=== PATIENT | female | born 1955 | race Caucasian/White ===

== ENCOUNTER 2018-12-17 14:22 | Inpatient (IN) ==
[2018-12-17] MEDS ORDERED: 0.9 % SODIUM CHLORIDE 1,000 ML IV ONE ×3 (14:30→18:21)
[2018-12-17 15:30] LABS: Hematocrit 46.4 % (36.0-48.0); Hemoglobin 15.3 g/dL (12.0-15.0); Mean Cell Volume 88.7 fL (80.0-100.0); Mean Corpuscular HGB Conc 32.9 g/dL (31.0-36.0); Mean Platelet Volume 10.1 fL (7.4-10.4); Platelet Count 309 K/mcL (140-440); RBC 5.23 M/mcL (4.00-5.20); Red Cell Distribution Width 12.1 % (11.5-14.5); WBC 14.5 K/mcL (4.5-11.0)
[2018-12-17 15:59] LABS: ALT/SGPT 10 U/l (0-40); AST/SGOT 10 U/l (0-37); Albumin 4.4 gm/dL (3.2-5.2); Alkaline Phosphatase 131 U/L (39-117); Bilirubin,Total 0.4 mg/dL (0.0-1.0); Blood Urea Nitrogen 25 mg/dl (8-23); Calcium 10.8 mg/dl (8.6-10.4); Carbon Dioxide < 5 mmol/L (22-30); Chloride 89 mmol/L (96-108); Globulin 4.4 gm/dL (2.2-3.7); Glomerular Filtration Rate 48; Glucose 540 mg/dL (70-105)
[2018-12-17] MEDS ORDERED: INSULIN REGULAR, HUMAN 1 UNIT/0.01 ML UNIT IV ONE (16:00)
[2018-12-17 16:09] LABS: Lymphocytes % 6 % (15-49); Monocytes % (Manual) 1 % (1-12); Platelet Estimate NORMAL (NORMAL); RBC Morphology NORMAL (NORMAL); Segmented Neutrophils % 93 % (38-78)
--- NOTE | 2018-12-17 16:13 | Emergency Department Note ---
Weakness HPI - General Chief complaint: Weakness Stated complaint: weakness, nausea vomiting Time Seen by Provider: 12/17/18 14:37 Source: patient, family Mode of arrival: wheelchair Limitations: no limitations - History of Present Illness HPI Narrative: This pleasant 63-year-old female reports vomiting, weakness and fatigue. Not really nauseated. She had 5 episodes of emesis and/or liquids that she was trying to keep down today. No diarrhea. She has been trying to drink bone broth, electrolyte replacement, and lots of water. She is also been sleeping a lot the last several days. No exposure to others with gastroenteritis symptoms. No recent antibiotics. She feels a tiny bit short of breath. She denies dizziness or lightheadedness except feels a little bit imbalanced or woozy when she gets up to move around. REVIEW OF SYSTEMS: Denies fever, chills, sweats, chest pain. Has occasional palpitations p articularly after eating that may make her take some deeper breaths. Denies cough, shortness of breath, abdominal pain, dysuria, back pain, headache, anxiety, depression. - Related Data Allergies Allergy/AdvReac Type Severity Reaction Status Date / Time Amoxicillin [From Augmentin] AdvReac Nausea Verified 12/17/18 14:27 clavulanic acid AdvReac Nausea Verified 12/17/18 14:27 [From Augmentin] Past Medical History - Past Medical History Medical history: Reports: other (PREDIABETES (2016-andrew).). Denies: cancer, CVA, DVT, hypertension, hypothyroidism, myocardial infarction, pulmonary embolus, renal disease Psychiatric history: Denies: anxiety, depression Surgical history ED: Reports: dilation and curettage - Social History smoking status: Never smoker Physical Exam Limitations: no limitations General appearance: alert, consternation, in no apparent distress, malaise Head: atraumatic, normocephalic Eye: Present: normal appearance, PERRL, EOMI. Absent: scleral icterus, conjunctival injection ENT: Present: mucous membranes dry Neck: Present: trachea midline. Absent: lymphadenopathy, thyromegaly Chest: Present: symmetric chest wall rise Respiratory: Present: normal lung sounds bilaterally. Absent: respiratory distress, wheezes, stridor, accessory muscle use, prolonged expiratory phase Cardiovascular: Present: regular rate, tachycardia. Absent: systolic murmur, diastolic murmur Abdominal: Present: soft. Absent: distention, tenderness, guarding, rebound, rigidity, organomegaly, mass Extremities: Absent: pedal edema, pretibial edema, calf tenderness Back: Absent: CVA tenderness (R), CVA tenderness (L) Neurological: Present: alert, oriented X3 Psychiatric: Present: flat affect, serious. Absent: depressed, agitated, anxious, poor eye contact Skin: Present: warm, dry Course Vital Signs Temperature 98.2 F 12/17/18 14:23 Pulse Rate 122 H 12/17/18 14:23 Respiratory Rate 20 12/17/18 14:23 Blood Pressure 185/87 12/17/18 14:23 Pulse Oximetry (%) 98 12/17/18 14:23 Temperature 98.2 F 12/17/18 14:23 Pulse Rate 98 H 12/17/18 17:31 Respiratory Rate 20 12/17/18 17:31 Blood Pressure 153/76 12/17/18 17:31 Pulse Oximetry (%) 100 12/17/18 17:31 Weakness - MDM Narrative Medical decision making narrative: 4:07 PM -- patient's labs come back with a markedly suppressed bicarb and blood sugar of over 500. Will add beta hydroxybutyrate, ABG, 5 units of regular insulin IV, moved to cardiac monitored bed. 4:20 PM -- she reports that approximately 3 years ago was when she had a diagnosis of prediabetes. She has lost about 60 pounds of weight since that period of time. She was unaware of any elevated blood sugar chronic or severe problem. 4:36 PM -- ABG comes back with a pH of 6.99, PCO2 of 11, base excess -26.9. With the severe acidotic measures patient is in rather severe DKA and will start DKA protocol. - Lab Data Lab results reviewed: Yes I reviewed the patient's lab results. Result diagrams: 12/17/18 14:52 12/17/18 14:52 Lab Results 12/17/18 12/17/18 12/17/18 Range/Units 14:52 14:52 14:52 WBC 14.5 H (4.5-11.0) K/mcL RBC 5.23 H (4.00-5.20) M/mcL Hgb 15.3 H (12.0-15.0) g/dL Hct 46.4 (36.0-48.0) % MCV 88.7 (80.0-100.0) fL MCH 29.2 (26.0-34.0) pg MCHC 32.9 (31.0-36.0) g/dL RDW 12.1 (11.5-14.5) % Plt Count 309 (140-440) K/mcL MPV 10.1 (7.4-10.4) fL Total Counted 100 Seg Neutrophils % 93 H (38-78) % Band Neutrophils % Not Reportable Lymphocytes % 6 L (15-49) % Monocytes % (Manual) 1 (1-12) % Platelet Estimate Normal (NORMAL) RBC Morphology Normal (NORMAL) VBG Lactic Acid (0.5-2.0) mmol/L Sodium 132 L (133-145) mmol/L Potassium 5.0 (3.3-5.1) mmol/L Chloride 89 L (96-108) mmol/L Carbon Dioxide < 5 L* (22-30) mmol/L Anion Gap 38.0 H (8-16) BUN 25 H (8-23) mg/dl Creatinine 1.2 H (0.6-1.1) mg/dl GFR Calculation 48 Glucose 540 H* (70-105) mg/dL Calcium 10.8 H (8.6-10.4) mg/dl Total Bilirubin 0.4 (0.0-1.0) mg/dL AST 10 (0-37) U/l ALT 10 (0-40) U/l Alkaline Phosphatase 131 H (39-117) U/L Total Protein 8.8 H (5.9-8.4) gm/dL Albumin 4.4 (3.2-5.2) gm/dL Globulin 4.4 H (2.2-3.7) gm/dL Albumin/Globulin Ratio 1.0 (1.0-2.3) Beta-Hydroxybutyrate 14.50 H (< 0.27) mmol/L 12/17/18 Range/Units 14:54 WBC (4.5-11.0) K/mcL RBC (4.00-5.20) M/mcL Hgb (12.0-15.0) g/dL Hct (36.0-48.0) % MCV (80.0-100.0) fL MCH (26.0-34.0) pg MCHC (31.0-36.0) g/dL RDW (11.5-14.5) % Plt Count (140-440) K/mcL MPV (7.4-10.4) fL Total Counted Seg Neutrophils % (38-78) % Band Neutrophils % Lymphocytes % (15-49) % Monocytes % (Manual) (1-12) % Platelet Estimate (NORMAL) RBC Morphology (NORMAL) VBG Lactic Acid 3.4 H (0.5-2.0) mmol/L Sodium (133-145) mmol/L Potassium (3.3-5.1) mmol/L Chloride (96-108) mmol/L Carbon Dioxide (22-30) mmol/L Anion Gap (8-16) BUN (8-23) mg/dl Creatinine (0.6-1.1) mg/dl GFR Calculation Glucose (70-105) mg/dL Calcium (8.6-10.4) mg/dl Total Bilirubin (0.0-1.0) mg/dL AST (0-37) U/l ALT (0-40) U/l Alkaline Phosphatase (39-117) U/L Total Protein (5.9-8.4) gm/dL Albumin (3.2-5.2) gm/dL Globulin (2.2-3.7) gm/dL Albumin/Globulin Ratio (1.0-2.3) Beta-Hydroxybutyrate (< 0.27) mmol/L - EKG Data EKG attestation: Yes There are no EKG findings of acute coronary syndrome, Yes This EKG will be read by waste machine tender EKG results narrative: Sinus tachycardia with possible biatrial enlargement. Disposition Pt seen by TECHNICAL REP/PA only: No Clinical Impression: DKA (diabetic ketoacidoses) Qualifiers: Diabetes mellitus type: type 2 Diabetes mellitus complication detail: without coma Qualified Code(s): E11.10 - Type 2 diabetes mellitus with ketoacidosis without coma Summary: See "MEDICAL DECISION MAKING" above. 5:40 PM -- discussed with Dr. Caldwell, hospitalist, who is willing to accept this patient's care for inpatient. She will be admitted to the ICU. Potassium drip to be started and procalcitonin added per his request. Disposition: Xfer As Inpt ([facility]) Condition: Fair Referrals: Boston Almanza DO [Primary Care Provider] -
[2018-12-17] MEDS ORDERED: INSULIN REGULAR, HUMAN 50 UNIT in 0.9 % SODIUM CHLORIDE 99.5 ML IV ONE (16:39)
[2018-12-17] MEDS ORDERED: POTASSIUM CHLORIDE 20 MEQ in DEXTROSE 5% IN WATER 250 ML IV ONE ×2 (17:43→19:57)
[2018-12-17] MEDS ORDERED: ONDANSETRON 4 MG/2 ML VIAL IV PRN (19:57)
[2018-12-17] MEDS ORDERED: MAGNESIUM SULFATE 2 GM/50 ML BAG IV PRN (19:57)
[2018-12-17] MEDS ORDERED: ACETAMINOPHEN 325 MG TABLET PO PRN (19:57)
[2018-12-17] MEDS ORDERED: POTASSIUM CHLORIDE 40 MEQ in DEXTROSE 5% IN WATER 500 ML IV SCH (19:57)
[2018-12-17] MEDS ORDERED: MELATONIN 3 MG TABLET PO PRN (19:57)
[2018-12-17] MEDS ORDERED: POTASSIUM CHLORIDE 20 MEQ/10 ML VIAL IV ONE (20:41)
[2018-12-17 20:47] LABS: ABG Methemoglobin 0.1 % (0.4-1.5); Total Hemoglobin 13.7 gm/dL (12.0-15.0); VBG HCO3 7.5 mmol/L (24.0-28.0); VBG Oxygen Saturation 87.7 % (40.0-70.0); VBG PCO2 23.2 mmHg (41.0-51.0); VBG PH 7.13 U (7.32-7.42); VBG PO2 65 mmHg (25-40); VBG Total CO2 8.2 mmol/L (25.0-29.0)
[2018-12-17] MEDS: 0.45 % SODIUM CHLORIDE 1,000 ML IV SCH (20:56)
[2018-12-17] MEDS: DEXTROSE 5%-1/2NS 1,000 ML IV SCH (20:56)
[2018-12-17] MEDS: HEPARIN 5,000 UNIT/ML VIAL SQ SCH (21:05)
[2018-12-17] MEDS: DOCUSATE SODIUM 100 MG CAPSULE PO SCH (21:05)
[2018-12-17] MEDS: SENNOSIDES/DOCUSATE SODIUM 1 TAB TABLET PO SCH (21:05)
[2018-12-17] MEDS: CYANOCOBALAMIN (VITAMIN B-12) 500 MCG TABLET PO SCH (21:06)
[2018-12-17 22:03] LABS: ALT/SGPT 8 U/l (0-40); AST/SGOT 12 U/l (0-37); Albumin 3.8 gm/dL (3.2-5.2); Alkaline Phosphatase 110 U/L (39-117); Bilirubin,Direct < 0.2 mg/dL (0.0-0.3); Bilirubin,Total 0.2 mg/dL (0.0-1.0); Blood Urea Nitrogen 22 mg/dl (8-23); Calcium 9.7 mg/dl (8.6-10.4); Carbon Dioxide 7 mmol/L (22-30); Chloride 102 mmol/L (96-108); Globulin 3.9 gm/dL (2.2-3.7); Glomerular Filtration Rate 60; Glucose 331 mg/dL (70-105); Lactate Dehydrogenase 198 U/L (94-250); Phosphorous 1.5 mg/dL (2.7-4.5); Triglycerides 94 mg/dl (<150); Uric Acid 10.2 mg/dL (2.5-8.0)
--- NOTE | 2018-12-17 22:14 | Internal Med History&Physical ---
Medical - H&P: [facility] Patient information: Note initiated : 12/17/18 at 10:11 pm Service Date, if different from initiated Date: [] Patient: Iris Dey a 63 y/o F admitted on 12/17/18 for Weakness, Nausea, Vomiting. Chief Complaint: [] Chief complaint: Nausea, weakness History of present illness: Ms. Dey is a 63 year old F with no significant prior medical history who presents to the ER with symptoms of increasing nausea weakness dehydration and loss of appetite over the last 48 hours. She has had multiple episodes of emesis however denies any sick contact, uncooked meat intake or changes in medication. She denies that diarrhea, bloody stool, dysuria, cough fever, joint pain or rash. She feels extremely dehydrated and dizzy and has not been able to function over the last few hours. She was brought into the ER accompanied by multiple family members. Initial work-up was consistent with severe DKA with a pH less than 7, undetectable bicarb and blood sugar over 550. Elevated ketones. Patient was started on DKA protocol with aggressive crystalloids and insulin bolus. She does not carry history of prior diabetes. She last saw her primary care physician [address] Walton and has yet to be established with a new primary care physician. Her last health screen was approximately 2 years ago. She endorses 2 symptoms of polyphagia, polydipsia and polyuria. Review of systems A 10 point review of system was performed and is negative except as discussed above Medical - H&P: PMH Medical history: Nonsignificant Pertinent family history: No immediate family members history of diabetes Social history: No smoking or alcoholism Retired and lives with in [place] [facility] - H&P: Meds Home Medications Medication Instructions Recorded Confirmed Type No Known Home Meds 12/17/18 12/17/18 History Allergies Allergy/AdvReac Type Severity Reaction Status Date / Time Amoxicillin [From Augmentin] AdvReac Nausea Verified 12/17/18 14:27 clavulanic acid AdvReac Nausea Verified 12/17/18 14:27 [From Augmentin] Medical - H&P: Exam - Constitutional Vitals: Temp Pulse Resp BP Pulse Ox 98.8 F 98 H 22 141/65 100 12/17/18 20:24 12/17/18 20:24 12/17/18 20:24 12/17/18 20:24 12/17/18 20:24 General appearance: no acute distress Exam: Alert oriented Oral cavity dry No ear nose discharge Head normocephalic eye movement symmetrical S1-S2 regular rhythm tachycardia Diminished breath sounds bases Abdomen soft nontender Lower extremity no cyanosis clubbing no joint swelling Skin no pallor, cyanosis Psych alert cooperative mild anxiety Neuro nonfocal Medical - H&P: Reslt - Labs CBC & Chem 7: 12/18/18 03:45 12/18/18 03:45 Labs: Short CBC 12/17/18 Range/Units 14:52 WBC 14.5 H (4.5-11.0) K/mcL Hgb 15.3 H (12.0-15.0) g/dL Hct 46.4 (36.0-48.0) % Plt Count 309 (140-440) K/mcL BMP 12/17/18 12/17/18 14:52 20:17 Sodium 132 L 134 Potassium 5.0 4.3 Chloride 89 L 102 Carbon Dioxide < 5 L* 7 L* BUN 25 H 22 Creatinine 1.2 H 1.0 Glucose 540 H* 331 H Calcium 10.8 H 9.7 Liver Function 12/17/18 12/17/18 Range/Units 14:52 20:17 Total Bilirubin 0.4 0.2 (0.0-1.0) mg/dL Direct Bilirubin < 0.2 (0.0-0.3) mg/dL GGT 11 (5-36) U/L AST 10 12 (0-37) U/l ALT 10 8 (0-40) U/l Alkaline Phosphatase 131 H 110 (39-117) U/L Albumin 4.4 3.8 (3.2-5.2) gm/dL - ABG Interpretation ABG results: 12/17/18 20:17 ABG Methemoglobin 0.1 L VBG pH 7.13 L* VBG pCO2 23.2 L VBG pO2 65 H VBG HCO3 7.5 L* VBG Total CO2 8.2 L* VBG O2 Saturation 87.7 H VBG Base Excess -20.0 L Medical - H&P: A/P (1) DKA (diabetic ketoacidoses) Current visit: Yes Status: Acute * Diabetic ketoacidosis-new onset. Continue management per protocol with aggressive crystalloid/insulin drip/electrolyte replacement. Start diabetic education. Admit to ICU. Check A1c * Hypokalemia continue electrolyte replacement * Leukocytosis likely stress response. Continue monitoring. No indication for antibiotics at this time Plan * DKA management protocol * Crystalloids/Electrolytes replacement * Diabetes education * ICU admit
[2018-12-17] MEDS: 0.9 % SODIUM CHLORIDE 10 ML SYRINGE IV SCH (22:20)
[2018-12-18] MEDS ORDERED: INSULIN REGULAR, HUMAN 1 UNIT/0.01 ML UNIT ONE (00:26)
[2018-12-18 00:40] LABS: ABG Methemoglobin 0.3 % (0.4-1.5); Total Hemoglobin 11.9 gm/dL (12.0-15.0); VBG Base Excess -12.1 (-2.0-2.0); VBG HCO3 13.2 mmol/L (24.0-28.0); VBG PCO2 28.8 mmHg (41.0-51.0); VBG PH 7.28 U (7.32-7.42); VBG PO2 70 mmHg (25-40); VBG Total CO2 14.1 mmol/L (25.0-29.0)
[2018-12-18] MEDS: INSULIN REGULAR, HUMAN 50 UNIT in 0.9 % SODIUM CHLORIDE 99.5 ML IV SCH (01:34)
[2018-12-18 04:16] LABS: ABG Methemoglobin 0.3 % (0.4-1.5); Total Hemoglobin 11.8 gm/dL (12.0-15.0); VBG Base Excess -10.6 (-2.0-2.0); VBG HCO3 14.3 mmol/L (24.0-28.0); VBG Oxygen Saturation 93.5 % (40.0-70.0); VBG PCO2 29.1 mmHg (41.0-51.0); VBG PH 7.31 U (7.32-7.42); VBG PO2 79 mmHg (25-40); VBG Total CO2 15.2 mmol/L (25.0-29.0)
[2018-12-18 04:55] LABS: Mean Cell Volume 87.3 fL (80.0-100.0); Mean Corpuscular HGB Conc 34.2 g/dL (31.0-36.0); Mean Platelet Volume 8.9 fL (7.4-10.4); Platelet Count 226 K/mcL (140-440); RBC 4.01 M/mcL (4.00-5.20); WBC 8.9 K/mcL (4.5-11.0)
[2018-12-18 05:24] LABS: ALT/SGPT 6 U/l (0-40); AST/SGOT 10 U/l (0-37); Alkaline Phosphatase 82 U/L (39-117); Bilirubin,Direct < 0.2 mg/dL (0.0-0.3); Bilirubin,Total 0.2 mg/dL (0.0-1.0); Blood Urea Nitrogen 15 mg/dl (8-23); Calcium 9.4 mg/dl (8.6-10.4); Carbon Dioxide 14 mmol/L (22-30); Chloride 109 mmol/L (96-108); Globulin 2.9 gm/dL (2.2-3.7); Glomerular Filtration Rate 97; Glucose 113 mg/dL (70-105); Lactate Dehydrogenase 131 U/L (94-250); Triglycerides 64 mg/dl (<150); Uric Acid 8.2 mg/dL (2.5-8.0)
[2018-12-18] MEDS: 0.9 % SODIUM CHLORIDE 10 ML SYRINGE IV SCH ×4 (05:55→22:03)
[2018-12-18 06:50] LABS: Hemoglobin A1C 12.8 % HGB (4.0-6.0)
[2018-12-18 08:34] LABS: Band Neutrophils % 3 % (0-10); Lymphocytes % 16 % (15-49); Monocytes % (Manual) 10 % (1-12); Platelet Estimate NORMAL (NORMAL); RBC Morphology NORMAL (NORMAL); Segmented Neutrophils % 71 % (38-78)
[2018-12-18] MEDS: 0.45 % SODIUM CHLORIDE 1,000 ML IV SCH (09:21)
[2018-12-18] MEDS: FOLIC ACID 1 MG TABLET PO SCH (09:54)
[2018-12-18] MEDS: NEUTRA PHOS 1 PACKET PO SCH ×3 (09:54→21:30)
[2018-12-18] MEDS: CYANOCOBALAMIN (VITAMIN B-12) 500 MCG TABLET PO SCH ×2 (09:54→21:31)
[2018-12-18] MEDS: MULTIVIT,THER IRON,CA,FA & MIN 1 TABLET PO SCH (09:54)
[2018-12-18] MEDS: THIAMINE 100 MG TABLET PO SCH (09:54)
[2018-12-18] MEDS: DOCUSATE SODIUM 100 MG CAPSULE PO SCH ×3 (09:54→21:56)
[2018-12-18] MEDS: HEPARIN 5,000 UNIT/ML VIAL SQ SCH ×2 (09:54→21:30)
[2018-12-18] MEDS: POTASSIUM CHLORIDE 20 MEQ PACKET PO PRN ×2 (09:55→22:39)
--- NOTE | 2018-12-18 10:14 | Internal Med Progress Note ---
Medical - PN: Subj Patient information: Note initiated : 12/18/18 at 10:11 am Service Date, if different from initiated Date: [] Patient: Iris Dey a 63 y/o F admitted on 12/17/18 for Weakness, Nausea, Vomiting. Chief Complaint: [] Interval history: Ms. Dey is a 63 year old F with no significant prior medical history who presents to the ER with symptoms of increasing nausea weakness dehydration and loss of appetite over the last 48 hours. She has had multiple episodes of emesis however denies any sick contact, uncooked meat intake or changes in medication. She denies that diarrhea, bloody stool, dysuria, cough fever, joint pain or rash. She feels extremely dehydrated and dizzy and has not been able to function over the last few hours. She was brought into the ER accompanied by multiple family members. Initial work-up was consistent with severe DKA with a pH less than 7, undetecta ble bicarb and blood sugar over 550. Elevated ketones. Patient was started on DKA protocol with aggressive crystalloids and insulin bolus. She does not carry history of prior diabetes. She last saw her primary care physician [address] Walton and has yet to be established with a new primary care physician. Her last health screen was approximately 2 years ago. She endorses 2 symptoms of polyphagia, polydipsia and polyuria. 12/18-patient doing well. Improving DKA with management on protocol. Continue electrolyte Replacement. Magnesium 1, potassium 3.6. White count downtrending from 40.6-9. Bicarb improving to 14. Continue insulin drip. Start oral diet once anion gap normalizes and ketones resolved. Start diabetic education 24 hours. Patient basal prandial insulin. Family members at bedside. Discussed treatment plan with patient and family - Constitutional Vitals: Vital Signs Temp Pulse Resp BP Pulse Ox 98.7 F 82 16 131/67 100 12/18/18 08:21 12/18/18 08:21 12/18/18 08:21 12/18/18 08:21 12/18/18 08:21 Period Temp Pulse Resp BP Sys/[place] Pulse Ox Last 24 Hr 98.2 F-99.9 F 82-122 16-26 113-185/59-98 98-100 Intake and Output 12/17/18 12/18/1812/18/19 21:59 05:59 13:59 Intake Total 2686 952 1300 Output Total 600 300 470 Balance 2086 652 830 Weight 122 lb 9.6 oz Intake & Output: Intake & Output 12/17/18 12/18/18 12/18/18 21:59 05:59 13:59 Intake Total 2686 952 1300 Output Total 600 300 470 Balance 2086 652 830 Weight 122 lb 9.6 oz Intake: IV 2686 952 940 Sodium Chloride 0.45% 1,000 ml 931 @ 75 mls/hr IV .[id number] [facility] Rx# :[id number] Sodium Chloride 0.9% 1,000 ml @ 2421 579 250 mls/hr IV .Q4H ONE Rx#: [id number] HumuLIN R 50 UNIT In Sodium 29 18 9 Chloride 0.9% 99.5 ml @ Per Protocol IV DUR [facility] Rx#: [id number] Potassium Chloride 20 Meq In 228 260 Dextrose 5% in Water 250 ml @ 130 mls/hr IV ONCE ONE Rx#: [id number] Oral 360 Output: Void Amount 600 300 450 Stool 20 Other: Urine Appearance Clear Clear Urine Color Straw Straw Pale Urine Odor Normal General appearance: no acute distress Exam: Alert oriented Significant weight loss with significant muscle wasting Soft nontender Lower extremity no cyanosis, pallor or clubbing Medical - PN: Obj Da - Labs CBC & Chem 7: 12/18/18 03:45 12/18/18 03:45 Labs: Abnormal Lab Results 12/18/18 12/18/18 12/18/18 03:45 03:45 03:45 WBC RBC Hgb Hct 35.0 L Seg Neutrophils % Lymphocytes % ABG Methemoglobin VBG pH VBG pCO2 VBG pO2 VBG HCO3 VBG Total CO2 VBG O2 Saturation VBG Base Excess VBG Lactic Acid Carboxyhemoglobin Total Hemoglobin Sodium Chloride 109 H Carbon Dioxide 14 L Anion Gap BUN Creatinine Glucose 113 H Hemoglobin A1c 12.8 H Uric Acid 8.2 H Calcium Phosphorus 1.0 L Alkaline Phosphatase Total Protein Albumin 3.0 L Globulin Beta-Hydroxybutyrate 12/18/18 12/17/18 12/17/18 03:45 23:57 20:17 WBC RBC Hgb Hct Seg Neutrophils % Lymphocytes % ABG Methemoglobin 0.3 L 0.3 L VBG pH 7.31 L 7.28 L VBG pCO2 29.1 L 28.8 L VBG pO2 79 H 70 H VBG HCO3 14.3 L 13.2 L VBG Total CO2 15.2 L 14.1 L VBG O2 Saturation 93.5 H 92.0 H VBG Base Excess -10.6 L -12.1 L VBG Lactic Acid Carboxyhemoglobin 2.8 H 2.6 H Total Hemoglobin 11.8 L 11.9 L Sodium Chloride Carbon Dioxide 7 L* Anion Gap 25.0 H BUN Creatinine Glucose 331 H Hemoglobin A1c Uric Acid 10.2 H Calcium Phosphorus 1.5 L Alkaline Phosphatase Total Protein Albumin Globulin 3.9 H Beta-Hydroxybutyrate 12/17/18 12/17/18 12/17/18 20:17 14:54 14:52 WBC RBC Hgb Hct Seg Neutrophils % Lymphocytes % ABG Methemoglobin 0.1 L VBG pH 7.13 L* VBG pCO2 23.2 L VBG pO2 65 H VBG HCO3 7.5 L* VBG Total CO2 8.2 L* VBG O2 Saturation 87.7 H VBG Base Excess -20.0 L VBG Lactic Acid 3.4 H Carboxyhemoglobin 4.3 H Total Hemoglobin Sodium Chloride Carbon Dioxide Anion Gap BUN Creatinine Glucose Hemoglobin A1c Uric Acid Calcium Phosphorus Alkaline Phosphatase Total Protein Albumin Globulin Beta-Hydroxybutyrate 14.50 H 12/17/18 12/17/18 14:52 14:52 WBC 14.5 H RBC 5.23 H Hgb 15.3 H Hct Seg Neutrophils % 93 H Lymphocytes % 6 L ABG Methemoglobin VBG pH VBG pCO2 VBG pO2 VBG HCO3 VBG Total CO2 VBG O2 Saturation VBG Base Excess VBG Lactic Acid Carboxyhemoglobin Total Hemoglobin Sodium 132 L Chloride 89 L Carbon Dioxide < 5 L* Anion Gap 38.0 H BUN 25 H Creatinine 1.2 H Glucose 540 H* Hemoglobin A1c Uric Acid Calcium 10.8 H Phosphorus Alkaline Phosphatase 131 H Total Protein 8.8 H Albumin Globulin 4.4 H Beta-Hydroxybutyrate Meds: Medications Acetaminophen (Tylenol) 650 mg PO Q4-6HP PRN PRN Reason: PAIN/FEVER > 101 Last Admin: 12/17/18 23:59 Dose: 650 mg Documented by: Cyanocobalamin (Vitamin B-12) 1,000 mcg PO BID TANNA Stop: 12/22/18 09:01 Last Admin: 12/18/18 09:54 Dose: 1,000 mcg Documented by: Diagnostic Test (Pha) (Accu-Chek) 1 each FS Q1 [facility] Last Admin: 12/18/18 09:05 Dose: 1 each Documented by: Docusate Sodium (Colace) 100 mg PO BID [facility] Last Admin: 12/18/18 09:54 Dose: 100 mg Documented by: Folic Acid (Folic Acid) 1 mg PO DAILY [facility] Last Admin: 12/18/18 09:54 Dose: 1 mg Documented by: Heparin Sodium (Porcine) (Heparin) 5,000 unit SQ Q12 [facility] Last Admin: 12/18/18 09:54 Dose: 5,000 unit Documented by: Dextrose/Sodium Chloride (Dextrose 5%-1/2ns Iv Solution) 1,000 mls @ 75 mls/hr IV .[id number] [facility] Last Admin: 12/17/18 20:56 Dose: 75 mls/hr Documented by: Potassium Chloride 40 meq/ (Dextrose) 520 mls @ 130 mls/hr IV UD TANNA Magnesium Sulfate (Magnesium Sulfate) 2 gm in 50 mls @ 50 mls/hr IV UD PRN PRN Reason: MG = or < 1.7 Last Admin: 12/18/18 09:57 Dose: 50 mls/hr Documented by: Insulin Human Regular 50 unit/ (Sodium Chloride) 100 mls @ 0 mls/hr IV DUR [facility]; Protocol Last Titration: 12/18/18 07:13 Dose: 1.5 unit/hr, 3 mls/hr Documented by: Iron Carb/Multivit/Giles/Folic Acid (Multivitamin W/Minerals) 1 tab PO DAILY [facility] Last Admin: 12/18/18 09:54 Dose: 1 tab Documented by: Melatonin (Melatonin 3mg Tablet) 3 mg PO HSP PRN PRN Reason: Insomnia Ondansetron HCl (Zofran) 4 mg IV Q4-6HP PRN PRN Reason: Nausea And Vomiting Potassium Chloride (Klor-Con) 40 meq PO DAILYP PRN PRN Reason: K+ < 3.5 Last Admin: 12/18/18 09:55 Dose: 40 meq Documented by: Potassium/Phosphorus/Sodium (Neutra Phos) 2 packet PO TID [facility] Stop: 12/19/18 21:01 Last Admin: 12/18/18 09:54 Dose: 2 packet Documented by: Senna/Docusate Sodium (Senna Plus Tablet) 1 tab PO HS [facility] Last Admin: 12/17/18 21:05 Dose: Not Given Documented by: Sodium Chloride (Saline Flush) 10 ml IV Q8 [facility] Last Admin: 12/18/18 09:57 Dose: 10 ml Documented by: Thiamine HCl (Vitamin B1) 100 mg PO DAILY [facility] Last Admin: 12/18/18 09:54 Dose: 100 mg Documented by: - ABG Interpretation ABG results: 12/17/18 12/17/18 12/18/18 20:17 23:57 03:45 ABG Methemoglobin 0.1 L 0.3 L 0.3 L VBG pH 7.13 L* 7.28 L 7.31 L VBG pCO2 23.2 L 28.8 L 29.1 L VBG pO2 65 H 70 H 79 H VBG HCO3 7.5 L* 13.2 L 14.3 L VBG Total CO2 8.2 L* 14.1 L 15.2 L VBG O2 Saturation 87.7 H 92.0 H 93.5 H VBG Base Excess -20.0 L -12.1 L -10.6 L Medical - PN: A/P - Time Spent With Patient Total time spent is greater than 50% in coordination of care (as documented) at patient's floor/unit and/or counseling patient: 25 - 35 minutes (1) DKA (diabetic ketoacidoses) Status: Acute Assessment and plan: * Diabetic ketoacidosis-new onset. Continue management per protocol with aggressive crystalloid/insulin drip/electrolyte replacement. Bicarb gap 38- 14. Start diabetic education. Admit to ICU. A1c 12.4 * Hypokalemia-continue aggressive IV and oral replacement. * Leukocytosis likely stress response. Normalized. * Hyponatremia improved * Low magnesium 1 currently on replacement * Full code * Reflux heparin Plan * Continue DKA management protocol * Wean insulin drip as tolerated * Crystalloids/Electrolytes replacement * May start oral clears in 6 hours * Diabetes education Current Visit: Yes
[2018-12-18] MEDS: DEXTROSE 5%-1/2NS 1,000 ML IV SCH ×2 (11:03→22:39)
[2018-12-18 17:40] LABS: Blood Urea Nitrogen 10 mg/dl (8-23); Calcium 9.4 mg/dl (8.6-10.4); Carbon Dioxide 17 mmol/L (22-30); Chloride 104 mmol/L (96-108); Glomerular Filtration Rate 103; Glucose 160 mg/dL (70-105)
[2018-12-18 20:39] LABS: Blood Urea Nitrogen 7 mg/dl (8-23); Calcium 8.9 mg/dl (8.6-10.4); Carbon Dioxide 19 mmol/L (22-30); Chloride 106 mmol/L (96-108); Glomerular Filtration Rate 103; Glucose 175 mg/dL (70-105)
[2018-12-18] MEDS: SENNOSIDES/DOCUSATE SODIUM 1 TAB TABLET PO SCH (21:56)
[2018-12-19] MEDS ORDERED: INSULIN REGULAR, HUMAN 1 UNIT/0.01 ML UNIT ONE (01:59)
[2018-12-19] MEDS: INSULIN REGULAR, HUMAN 50 UNIT in 0.9 % SODIUM CHLORIDE 99.5 ML IV SCH (02:02)
[2018-12-19 05:26] LABS: Hematocrit 33.5 % (36.0-48.0); Hemoglobin 11.5 g/dL (12.0-15.0); Mean Cell Volume 86.7 fL (80.0-100.0); Mean Corpuscular HGB Conc 34.3 g/dL (31.0-36.0); Mean Platelet Volume 9.4 fL (7.4-10.4); Platelet Count 213 K/mcL (140-440); RBC 3.87 M/mcL (4.00-5.20); Red Cell Distribution Width 12.1 % (11.5-14.5); WBC 5.2 K/mcL (4.5-11.0)
[2018-12-19 05:52] LABS: ALT/SGPT 7 U/l (0-40); AST/SGOT 11 U/l (0-37); Albumin 2.8 gm/dL (3.2-5.2); Alkaline Phosphatase 84 U/L (39-117); Bilirubin,Direct < 0.2 mg/dL (0.0-0.3); Bilirubin,Total 0.4 mg/dL (0.0-1.0); Blood Urea Nitrogen 5 mg/dl (8-23); Calcium 8.7 mg/dl (8.6-10.4); Carbon Dioxide 20 mmol/L (22-30); Chloride 108 mmol/L (96-108); Globulin 2.7 gm/dL (2.2-3.7); Glomerular Filtration Rate 111; Glucose 144 mg/dL (70-105); Lactate Dehydrogenase 125 U/L (94-250); Phosphorous 1.7 mg/dL (2.7-4.5); Triglycerides 119 mg/dl (<150); Uric Acid 4.5 mg/dL (2.5-8.0)
[2018-12-19] MEDS: 0.9 % SODIUM CHLORIDE 10 ML SYRINGE IV SCH ×3 (06:05→21:23)
[2018-12-19 06:35] LABS: Basophils % (Manual) 1 % (0-2); Lymphocytes % 21 % (15-49); Monocytes % (Manual) 4 % (1-12); Platelet Estimate NORMAL (NORMAL); RBC Morphology NORMAL (NORMAL); Segmented Neutrophils % 74 % (38-78)
[2018-12-19] MEDS: DOCUSATE SODIUM 100 MG CAPSULE PO SCH ×2 (08:03→21:05)
[2018-12-19] MEDS ORDERED: DEXTROSE 50% 50 ML VIAL IV PRN ×2 (08:24→12:44)
[2018-12-19] MEDS ORDERED: DEXTROSE 31 GM ORAL.SUSP PO PRN ×2 (08:24→12:44)
[2018-12-19] MEDS ORDERED: INSULIN GLARGINE, HUMAN 1 UNIT/0.01 ML SQ SCH (09:00)
[2018-12-19] MEDS: FOLIC ACID 1 MG TABLET PO SCH (09:34)
[2018-12-19] MEDS: HEPARIN 5,000 UNIT/ML VIAL SQ SCH ×2 (09:35→21:18)
[2018-12-19] MEDS: THIAMINE 100 MG TABLET PO SCH (10:33)
[2018-12-19] MEDS: NEUTRA PHOS 1 PACKET PO SCH ×3 (10:33→21:22)
[2018-12-19] MEDS: CYANOCOBALAMIN (VITAMIN B-12) 500 MCG TABLET PO SCH ×2 (10:33→21:21)
[2018-12-19] MEDS: MULTIVIT,THER IRON,CA,FA & MIN 1 TABLET PO SCH (10:33)
--- NOTE | 2018-12-19 11:21 | Internal Med Progress Note ---
Medical - PN: Subj Patient information: Note initiated : 12/19/18 at 11:19 am Service Date, if different from initiated Date: [] Patient: Iris Dey a 63 y/o F admitted on 12/17/18 for Weakness, Nausea, Vomiting. Chief Complaint: [] Interval history: Ms. Dey is a 63 year old F with no significant prior medical history who presents to the ER with symptoms of increasing nausea weakness dehydration and loss of appetite over the last 48 hours. She has had multiple episodes of emesis however denies any sick contact, uncooked meat intake or changes in medication. She denies that diarrhea, bloody stool, dysuria, cough fever, joint pain or rash. She feels extremely dehydrated and dizzy and has not been able to function over the last few hours. She was brought into the ER accompanied by multiple family members. Initial work-up was consistent with severe DKA with a pH less than 7, undetecta ble bicarb and blood sugar over 550. Elevated ketones. Patient was started on DKA protocol with aggressive crystalloids and insulin bolus. She does not carry history of prior diabetes. She last saw her primary care physician [address] Walton and has yet to be established with a new primary care physician. Her last health screen was approximately 2 years ago. She endorses 2 symptoms of polyphagia, polydipsia and polyuria. 12/18-patient doing well. Improving DKA with management on protocol. Continue electrolyte Replacement. Magnesium 1, potassium 3.6. White count downtrending from 40.6-9. Bicarb improving to 14. Continue insulin drip. Start oral diet once anion gap normalizes and ketones resolved. Start diabetic education 24 hours. Patient basal prandial insulin. Family members at bedside. Discussed treatment plan with patient and family 12/19-patient doing remarkably better. Transition to subcutaneous insulin. Diabetes education ongoing. Aggressively replacing potassium, magnesium and phosphorus. White count normalized from 14.5-5.2. Anion gap bridged, bicarb up to 20. Started on CC diet. Downgrade to telemetry. Anticipate discharge in 24 hours once patient is able to self administer insulin. Ideally would require carb counting/basal insulin - Constitutional Vitals: Vital Signs Temp Pulse Resp BP Pulse Ox 99.8 F H 94 H 14 121/77 99 12/19/18 08:11 12/18/18 23:33 12/19/18 08:31 12/19/18 08:11 12/19/18 08:11 Period Temp Pulse Resp BP Sys/[place] Pulse Ox Last 24 Hr 98.6 F-100.7 F 87-94 12-24 118-137/63-77 98-100 Intake and Output 12/18/18 12/19/18 12/19/18 21:59 05:59 13:59 Intake Total 2019 1293 240 Output Total 1700 500 Balance 320 1293 -260 Weight 129 lb 129 lb Patient Weight 12/20/18 05:59 Weight 129 lb Intake & Output: Intake & Output 12/18/18 12/19/18 12/19/18 21:59 05:59 13:59 Intake Total 2019 1293 240 Output Total 1700 500 Balance 320 1293 -260 Weight 129 lb 129 lb Intake: IV 933 Dextrose 5%-1/2Ns IV Solution 1 870 ,000 ml @ 75 mls/hr IV .[id number] TANNA Rx#:[id number] HumuLIN R 50 UNIT In Sodium 63 Chloride 0.9% 99.5 ml @ Per Protocol IV DUR TANNA Rx#: [id number] Oral 2020 360 240 Output: Void Amount 1700 Urine/Stool Mix 500 Other: Urine Appearance Clear Clear Urine Color Straw Straw Urine Odor Normal Normal Stool Color Brown General appearance: no acute distress Exam: Cachectic Alert and oriented Nonlabored breathing No telemetry events No anxiety Medical - PN: Obj Da - Labs CBC & Chem 7: 12/19/18 03:35 12/19/18 03:35 Labs: Abnormal Lab Results 12/19/18 12/19/18 12/18/18 03:35 03:35 19:50 WBC RBC 3.87 L Hgb 11.5 L Hct 33.5 L Seg Neutrophils % Lymphocytes % ABG Methemoglobin VBG pH VBG pCO2 VBG pO2 VBG HCO3 VBG Total CO2 VBG O2 Saturation VBG Base Excess VBG Lactic Acid Carboxyhemoglobin Total Hemoglobin Sodium Potassium 3.2 L Chloride Carbon Dioxide 20 L 19 L Anion Gap BUN 5 L 7 L Creatinine 0.4 L 0.5 L Glucose 144 H 175 H Hemoglobin A1c Uric Acid Calcium Phosphorus 1.7 L Alkaline Phosphatase Total Protein 5.5 L Albumin 2.8 L Globulin Beta-Hydroxybutyrate 12/18/18 12/18/18 12/18/18 13:00 03:45 03:45 WBC RBC Hgb Hct Seg Neutrophils % Lymphocytes % ABG Methemoglobin VBG pH VBG pCO2 VBG pO2 VBG HCO3 VBG Total CO2 VBG O2 Saturation VBG Base Excess VBG Lactic Acid Carboxyhemoglobin Total Hemoglobin Sodium Potassium Chloride 109 H Carbon Dioxide 17 L 14 L Anion Gap BUN Creatinine 0.5 L Glucose 160 H 113 H Hemoglobin A1c 12.8 H Uric Acid 8.2 H Calcium Phosphorus 1.0 L Alkaline Phosphatase Total Protein Albumin 3.0 L Globulin Beta-Hydroxybutyrate 12/18/18 12/18/18 12/17/18 03:45 03:45 23:57 WBC RBC Hgb Hct 35.0 L Seg Neutrophils % Lymphocytes % ABG Methemoglobin 0.3 L 0.3 L VBG pH 7.31 L 7.28 L VBG pCO2 29.1 L 28.8 L VBG pO2 79 H 70 H VBG HCO3 14.3 L 13.2 L VBG Total CO2 15.2 L 14.1 L VBG O2 Saturation 93.5 H 92.0 H VBG Base Excess -10.6 L -12.1 L VBG Lactic Acid Carboxyhemoglobin 2.8 H 2.6 H Total Hemoglobin 11.8 L 11.9 L Sodium Potassium Chloride Carbon Dioxide Anion Gap BUN Creatinine Glucose Hemoglobin A1c Uric Acid Calcium Phosphorus Alkaline Phosphatase Total Protein Albumin Globulin Beta-Hydroxybutyrate 12/17/18 12/17/18 12/17/18 20:17 20:17 14:54 WBC RBC Hgb Hct Seg Neutrophils % Lymphocytes % ABG Methemoglobin 0.1 L VBG pH 7.13 L* VBG pCO2 23.2 L VBG pO2 65 H VBG HCO3 7.5 L* VBG Total CO2 8.2 L* VBG O2 Saturation 87.7 H VBG Base Excess -20.0 L VBG Lactic Acid 3.4 H Carboxyhemoglobin 4.3 H Total Hemoglobin Sodium Potassium Chloride Carbon Dioxide 7 L* Anion Gap 25.0 H BUN Creatinine Glucose 331 H Hemoglobin A1c Uric Acid 10.2 H Calcium Phosphorus 1.5 L Alkaline Phosphatase Total Protein Albumin Globulin 3.9 H Beta-Hydroxybutyrate 12/17/18 12/17/18 12/17/18 14:52 14:52 14:52 WBC 14.5 H RBC 5.23 H Hgb 15.3 H Hct Seg Neutrophils % 93 H Lymphocytes % 6 L ABG Methemoglobin VBG pH VBG pCO2 VBG pO2 VBG HCO3 VBG Total CO2 VBG O2 Saturation VBG Base Excess VBG Lactic Acid Carboxyhemoglobin Total Hemoglobin Sodium 132 L Potassium Chloride 89 L Carbon Dioxide < 5 L* Anion Gap 38.0 H BUN 25 H Creatinine 1.2 H Glucose 540 H* Hemoglobin A1c Uric Acid Calcium 10.8 H Phosphorus Alkaline Phosphatase 131 H Total Protein 8.8 H Albumin Globulin 4.4 H Beta-Hydroxybutyrate 14.50 H Meds: Medications Acetaminophen (Tylenol) 650 mg PO Q4-6HP PRN PRN Reason: PAIN/FEVER > 101 Last Admin: 12/17/18 23:59 Dose: 650 mg Documented by: Cyanocobalamin (Vitamin B-12) 1,000 mcg PO BID [facility] Stop: 12/22/18 09:01 Last Admin: 12/19/18 10:33 Dose: 1,000 mcg Documented by: Dextrose (Dextrose 50%) 0 ml IV UD PRN PRN Reason: Hypoglycemia Diagnostic Test (Pha) (Accu-Chek) 1 each FS Q2 [facility] Last Admin: 12/19/18 08:00 Dose: 1 each Documented by: Diagnostic Test (Pha) (Accu-Chek) 1 each FS ACHS [facility] Docusate Sodium (Colace) 100 mg PO BID [facility] Last Admin: 12/19/18 08:03 Dose: Not Given Documented by: Folic Acid (Folic Acid) 1 mg PO DAILY [facility] Last Admin: 12/19/18 09:34 Dose: 1 mg Documented by: Glucose (Insta-Glucose) 15 gm PO PRN PRN PRN Reason: Hypoglycemia Heparin Sodium (Porcine) (Heparin) 5,000 unit SQ Q12 [facility] Last Admin: 12/19/18 09:35 Dose: 5,000 unit Documented by: Dextrose/Sodium Chloride (Dextrose 5%-1/2ns Iv Solution) 1,000 mls @ 75 mls/hr IV .[id number] [facility] Last Admin: 12/18/18 22:39 Dose: 75 mls/hr Documented by: Potassium Chloride 40 meq/ (Dextrose) 520 mls @ 130 mls/hr IV UD [facility] Magnesium Sulfate (Magnesium Sulfate) 2 gm in 50 mls @ 50 mls/hr IV UD PRN PRN Reason: MG = or < 1.7 Last Infusion: 12/18/18 11:18 Dose: Infused Documented by: Insulin Glargine (Lantus) 15 unit SQ DAILY [facility] Last Admin: 12/19/18 09:33 Dose: 15 units Documented by: Insulin Human Lispro (Humalog) 5 unit SQ AC [facility] Insulin Human Lispro (Humalog) 0 unit SQ ACHS [facility]; Protocol Iron Carb/Multivit/[place]/Folic Acid (Multivitamin W/Minerals) 1 tab PO DAILY [facility] Last Admin: 12/19/18 10:33 Dose: 1 tab Documented by: Melatonin (Melatonin 3mg Tablet) 3 mg PO HSP PRN PRN Reason: Insomnia Ondansetron HCl (Zofran) 4 mg IV Q4-6HP PRN PRN Reason: Nausea And Vomiting Potassium Chloride (Klor-Con) 40 meq PO DAILYP PRN PRN Reason: K+ < 3.5 Last Admin: 12/18/18 22:39 Dose: 40 meq Documented by: Potassium/Phosphorus/Sodium (Neutra Phos) 2 packet PO TID [facility] Stop: 12/19/18 21:01 Last Admin: 12/19/18 10:33 Dose: 2 packet Documented by: Senna/Docusate Sodium (Senna Plus Tablet) 1 tab PO HS [facility] Last Admin: 12/18/18 21:56 Dose: Not Given Documented by: Sodium Chloride (Saline Flush) 10 ml IV Q8 [facility] Last Admin: 12/19/18 06:05 Dose: 10 ml Documented by: Thiamine HCl (Vitamin B1) 100 mg PO DAILY [facility] Last Admin: 12/19/18 10:33 Dose: 100 mg Documented by: - ABG Interpretation ABG results: 12/17/18 12/17/18 12/18/18 20:17 23:57 03:45 ABG Methemoglobin 0.1 L 0.3 L 0.3 L VBG pH 7.13 L* 7.28 L 7.31 L VBG pCO2 23.2 L 28.8 L 29.1 L VBG pO2 65 H 70 H 79 H VBG HCO3 7.5 L* 13.2 L 14.3 L VBG Total CO2 8.2 L* 14.1 L 15.2 L VBG O2 Saturation 87.7 H 92.0 H 93.5 H VBG Base Excess -20.0 L -12.1 L -10.6 L Medical - PN: A/P - Time Spent With Patient Total time spent is greater than 50% in coordination of care (as documented) at patient's floor/unit and/or counseling patient: 25 - 35 minutes (1) DKA (diabetic ketoacidoses) Status: Acute Assessment and plan: * Diabetic ketoacidosis-clinically resolved. Anion gap normalized. Transition to subcutaneous insulin and DC insulin drip. Start diabetic education/diabetic diet. * Hypokalemia, low phosphorus, low magnesium-continue oral replacement * Leukocytosis likely stress response. Normalized. * Hyponatremia resolved * Full code * Reflux heparin Plan * Transition to subcutaneous insulin * Diabetic diet/diabetic education * Aggressive electrolyte replacement * Anticipate discharge in 24 hours * Transfer to telemetry Current Visit: Yes
[2018-12-19] MEDS ORDERED: INSULIN LISPRO 1 UNIT/0.01 ML UNIT SQ SCH ×2 (11:30)
[2018-12-19] MEDS ORDERED: DEXTROSE 5%-1/2NS 1,000 ML IV SCH (12:44)
[2018-12-19] MEDS ORDERED: MAGNESIUM SULFATE 2 GM/50 ML BAG IV PRN (12:44)
[2018-12-19] MEDS ORDERED: ONDANSETRON 4 MG/2 ML VIAL IV PRN (12:44)
[2018-12-19] MEDS ORDERED: POTASSIUM CHLORIDE 40 MEQ in DEXTROSE 5% IN WATER 500 ML IV SCH (12:44)
[2018-12-19] MEDS ORDERED: POTASSIUM CHLORIDE 20 MEQ PACKET PO PRN (12:44)
[2018-12-19] MEDS ORDERED: ACETAMINOPHEN 325 MG TABLET PO PRN (12:44)
[2018-12-19] MEDS: INSULIN LISPRO 1 UNIT/0.01 ML UNIT SQ SCH ×3 (17:47→21:16)
[2018-12-19] MEDS: DEXTROSE 5%-1/2NS 1,000 ML IV SCH (18:33)
[2018-12-19] MEDS ORDERED: MELATONIN 3 MG TABLET PO PRN (21:00)
[2018-12-19] MEDS ORDERED: SENNOSIDES/DOCUSATE SODIUM 1 TAB TABLET PO SCH (21:00)
[2018-12-20 05:34] LABS: Hematocrit 32.5 % (36.0-48.0); Mean Cell Volume 87.2 fL (80.0-100.0); Mean Corpuscular HGB Conc 33.9 g/dL (31.0-36.0); Mean Platelet Volume 9.4 fL (7.4-10.4); Platelet Count 211 K/mcL (140-440); RBC 3.73 M/mcL (4.00-5.20); Red Cell Distribution Width 12.2 % (11.5-14.5); WBC 4.1 K/mcL (4.5-11.0)
[2018-12-20] MEDS: 0.9 % SODIUM CHLORIDE 10 ML SYRINGE IV SCH (05:34)
[2018-12-20 06:26] LABS: ALT/SGPT 7 U/l (0-40); AST/SGOT 10 U/l (0-37); Albumin 2.7 gm/dL (3.2-5.2); Alkaline Phosphatase 87 U/L (39-117); Bilirubin,Direct < 0.2 mg/dL (0.0-0.3); Bilirubin,Total 0.4 mg/dL (0.0-1.0); Blood Urea Nitrogen 7 mg/dl (8-23); Calcium 8.8 mg/dl (8.6-10.4); Carbon Dioxide 21 mmol/L (22-30); Chloride 108 mmol/L (96-108); Globulin 2.6 gm/dL (2.2-3.7); Glomerular Filtration Rate 111; Glucose 132 mg/dL (70-105); Lactate Dehydrogenase 127 U/L (94-250); Phosphorous 3.3 mg/dL (2.7-4.5); Triglycerides 94 mg/dl (<150); Uric Acid 3.5 mg/dL (2.5-8.0)
[2018-12-20] MEDS: CYANOCOBALAMIN (VITAMIN B-12) 500 MCG TABLET PO SCH (08:20)
[2018-12-20] MEDS: INSULIN LISPRO 1 UNIT/0.01 ML UNIT SQ SCH ×4 (08:25→12:28)
[2018-12-20 08:51] LABS: Band Neutrophils % 3 % (0-10); Eosinophils % (Manual) 1 % (0-7); Lymphocytes % 36 % (15-49); Monocytes % (Manual) 12 % (1-12); Platelet Estimate NORMAL (NORMAL); RBC Morphology NORMAL (NORMAL); Segmented Neutrophils % 48 % (38-78)
[2018-12-20] MEDS ORDERED: FOLIC ACID 1 MG TABLET PO SCH (09:00)
[2018-12-20] MEDS ORDERED: MULTIVIT,THER IRON,CA,FA & MIN 1 TABLET PO SCH (09:00)
[2018-12-20] MEDS ORDERED: THIAMINE 100 MG TABLET PO SCH (09:00)
[2018-12-20] MEDS ORDERED: INSULIN GLARGINE, HUMAN 1 UNIT/0.01 ML SQ SCH (09:00)
[2018-12-20] MEDS: DOCUSATE SODIUM 100 MG CAPSULE PO SCH (10:19)
[2018-12-20] MEDS: HEPARIN 5,000 UNIT/ML VIAL SQ SCH (10:19)
--- NOTE | 2018-12-20 11:29 | Discharge Summary ---
Medical - DS: Prov Patient information: Note initiated : 12/20/18 at 11:27 am Service Date, if different from initiated Date: [] Patient: Iris Dey 63 y/o F admitted on 12/17/18 for Weakness, Nausea, Vomiting. Chief Complaint: [] Date of admission: 12/17/18 19:53 Discharge date: 12/20/18 Primary care physician: Boston Almanza Consults: 12/17/18 17:42 Consult to Physician [CONS] Routine Comment: Consulting Provider: Karthik Andujar Reason For Exam: Physician to Consult Medical - DS: Meds - Discharge Medications Prescriptions: Insulin Glargine, Human [Lantus] 15 unit SQ DAILY 30 Days #30 unit Insulin Lispro [Humalog] See Protocol SQ ACHS 60 Days #30 unit Active and Home Medications: Home Medications Insulin Glargine, Human [Lantus] 15 unit SQ DAILY 30 Days #30 unit 12/20/18 [Rx Last Taken Unknown] Insulin Lispro [Humalog] See Protocol SQ ACHS 60 Days #30 unit 12/20/18 [Rx Last Taken Unknown] Medical - DS: Hosp Hospital Course: Discharge diagnosis * Diabetic ketoacidosis-clinically resolved with management per guidelines. Transition to subcutaneous insulin. New onset diabetes with aggressive diabetic education/resources provided. Continue diabetic diet. Continue basal/prandial insulin as advised * Hypokalemia, low phosphorus, low magnesium-managed with aggressive oral and IV replacement * Leukocytosis likely stress response. Normalized. * Hyponatremia resolved Brief hospital course Ms. Dey is a 63 year old F with no significant prior medical history who presents to the ER with symptoms of increasing nausea weakness dehydration and loss of appetite over the last 48 hours. She has had multiple episodes of emesis however denies any sick contact, uncooked meat intake or changes in medication. She denies that diarrhea, bloody stool, dysuria, cough fever, joint pain or rash. She feels extremely dehydrated and dizzy and has not been able to function over the last few hours. She was brought into the ER accompanied by multiple family members. Initial work-up was consistent with severe DKA with a pH less than 7, undetectable bicarb and blood sugar over 550. Elevated ketones. Patient was started on DKA protocol with aggressive crystalloids and insulin bolus. She does not carry history of prior diabetes. She last saw her primary care physician [address] Walton and has yet to be established with a new primary care physician. Her last health screen was approximately 2 years ago. She endorses 2 symptoms of polyphagia, polydipsia and polyuria. 12/18-patient doing well. Improving DKA with management on protocol. Continue electrolyte Replacement. Magnesium 1, potassium 3.6. White count downtrending from 40.6-9. Bicarb improving to 14. Continue insulin drip. Start oral diet once anion gap normalizes and ketones resolved. Start diabetic education 24 hours. Patient basal prandial insulin. Family members at bedside. Discussed treatment plan with patient and family 12/19-patient doing remarkably better. Transition to subcutaneous insulin. Diabetes education ongoing. Aggressively replacing potassium, magnesium and phosphorus. White count normalized from 14.5-5.2. Anion gap bridged, bicarb up to 20. Started on CC diet. Downgrade to telemetry. Anticipate discharge in 24 hours once patient is able to self administer insulin. Ideally would require carb counting/basal insulin 12/20-patient discharging with advised to follow-up with primary care physician and continue basal/prandial insulin as directed. Continue sliding scale insulin/outpatient diabetic education for carb counting. Detailed discharge instructions below Discharge diagnosis: . - Time Spent with Patient Total time spent providing and/or coordinating discharge services: Greater than 30 minutes Medical - DS: Exam - Constitutional Vitals: Vital Signs Temp Pulse Resp BP Pulse Ox 12/20/18 08:00 99.3 F H 16 123/67 97 12/20/18 04:00 99.5 F H 83 16 128/72 97 12/19/18 23:23 98.8 F 85 16 122/66 98 12/19/18 20:00 99.7 F H 16 133/73 98 12/19/18 18:30 100 H 98 12/19/18 16:00 97.7 F 94 H 18 134/76 100 12/19/18 13:10 99.8 F H 18 Intake and Output 12/19/18 12/20/18 12/20/18 21:59 05:59 13:59 Intake Total 850 300 240 Output Total 350 1300 Balance 500 -1000 240 Intake: Oral 850 300 240 Output: Void Amount 350 1300 Other: Meal Dinner Breakfast Percent of Meal Consumed 90 100% Feeding Ability Assist with Tray Set Up Independent Urine Appearance Clear Clear Urine Color Dark Yellow Bright Yellow Stool Consistency Loose # Bowel Movements 1 0 Weight 131 lb Medical - DS: Data Labs on day of discharge: Labs from last 24 hours 12/20/18 12/20/18 03:50 03:50 WBC 4.1 L RBC 3.73 L Hgb 11.0 L Hct 32.5 L MCV 87.2 MCH 29.5 MCHC 33.9 RDW 12.2 Plt Count 211 MPV 9.4 Total Counted 100 Seg Neutrophils % 48 Band Neutrophils % 3 Lymphocytes % 36 Monocytes % (Manual) 12 Eosinophils % (Manual) 1 Platelet Estimate Normal RBC Morphology Normal Sodium 142 Potassium 3.4 Chloride 108 Carbon Dioxide 21 L Anion Gap 13.0 BUN 7 L Creatinine 0.4 L GFR Calculation 111 Glucose 132 H Uric Acid 3.5 Calcium 8.8 Phosphorus 3.3 Magnesium 1.7 Total Bilirubin 0.4 Direct Bilirubin < 0.2 GGT 10 AST 10 ALT 7 Alkaline Phosphatase 87 Lactate Dehydrogenase 127 Total Protein 5.3 L Albumin 2.7 L Globulin 2.6 Albumin/Globulin Ratio 1.0 Triglycerides 94 Medical - DS: A/P - Patient/Caregiver Discharge Instructions Activity: increase activity as tolerated Diet: Consistent Carbohydrate Additional Instructions: Continue basal/prandial insulin as advised Follow-up outpatient diabetic education Follow-up primary care physician in 5 to 7 days Blood sugar checks as advised Prescriptions: Insulin Glargine, Human [Lantus] 15 unit SQ DAILY 30 Days #30 unit Insulin Lispro [Humalog] See Protocol SQ ACHS 60 Days #30 unit - Problem Maintenance (1) DKA (diabetic ketoacidoses) Status: Acute Qualifiers: Diabetes mellitus type: type 2 Diabetes mellitus complication detail: without coma Qualified Code(s): E11.10 - Type 2 diabetes mellitus with ketoacidosis without coma - Follow up Plan Follow up with: Boston Almanza DO [Primary Care Provider] - 12/31/18 7:15 am (If you have any problems before this appointment, please call the office and they will get you in sooner with another physician.) Disposition: Home, Self-Care Care Plan Goals: This discharge packet is provided to you to help keep you informed about your care. We want to ensure you get everything you need when you go home. You will also be receiving a call from us in a few days to follow up with you and see how you are doing since your discharge. This gives us a chance to listen to any concerns you maybe experiencing since you were discharged or any additional needs you may have, as well as providing us feedback on your care experience. We strive to always provide excellent care and thank you for your feedback and for choosing [facility]. Prognosis: Fair Rehab Potential: Fair I certify that the patient requires SNF services: No Overall status at discharge: patient is progressing back to baseline
== END 2018-12-20 13:15 | disposition home or self-care (01) | DRG 638 ==
LOC: ED 14:22 → ICU 19:50
PROVIDERS: ADMIT Internal Medicine; ATTEND Internal Medicine

== ENCOUNTER 2019-12-16 12:53 | Inpatient (IN) ==
[2019-12-16] MEDS ORDERED: ONDANSETRON 4 MG/2 ML VIAL IV ONE (13:43)
[2019-12-16] MEDS ORDERED: HYDROmorphone 0.5 MG/0.5 ML SYRINGE IV PRN ×3 (13:43→19:19)
--- NOTE | 2019-12-16 13:43 | Emergency Department Note ---
Lower Extremity Injury HPI General Chief Complaint: Extremity Injury, Lower Stated Complaint: hip pain/fall Time Seen by Provider: 12/16/19 13:04 Source: patient and EMS Mode of arrival: EMS Limitations: no limitations History of Present Illness HPI Narrative: Narrative: 64-year-old female presents with left hip pain. She was going to put stuff in the car when she kind of caught her foot on the edge of a concrete lip causing her to lose her balance and fall. Landed on the left hip. States she can move it if needed but it is painful and difficult to bear weight due to pain. Did not hit her head. No loss consciousness. No head, neck, or back pain. She last ate and drank at 930 this morning. No numbness or tingling. Denies any other injuries. No treatments prior to arrival. Arrives via EMS. Related Data Home Medications Medication Instructions Recorded Confirmed insulin glargine [Lantus U-100 19 unit SUB-Q QHS 12/16/19 12/16/19 Insulin] insulin lispro [Humalog U-100 7 - 8 unit SUB-Q TID 12/16/19 12/16/19 Insulin] Previous Rx's Medication Instructions Recorded blood sugar diagnostic #120 strip 12/20/18 blood-glucose meter #1 each 12/20/18 insulin syringe-needle U-100 0.3 #300 each 09/09/19 mL 31 gauge x 08/29" Allergies Allergy/AdvReac Type Severity Reaction Status Date / Time Amoxicillin [From Augmentin] AdvReac Mild Nausea Verified 12/16/19 13:00 clavulanic acid AdvReac Mild Nausea Verified 12/16/19 13:00 [From Augmentin] Review of Systems ROS ROS Narrative: Narrative: All systems ED: reviewed and negative except as stated. 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), managed as type 1 (Acute) Underweight (Chronic) Glucose intolerance (Chronic) Elevated BP without diagnosis of hypertension (Chronic) Diabetes mellitus, type II (Chronic) DKA (diabetic ketoacidoses) (Acute) Prediabetes (Chronic) Medical History Diabetes mellitus, type II (Chronic) Diet treated Elevated BP without diagnosis of hypertension (Chronic) Glucose intolerance (Chronic) Stabilization by aggressive diet Prediabetes (Chronic) Onset 2015- Surgical History History of colonoscopy (Chronic ~04/2008) History of dilation and curettage (Chronic) Family History Other Melanoma Social History Smoking Status: Never smoker Alcohol Intake Frequency: holiday/special occasion only Substance Use: does not use Exam Narrative Narrative: Narrative: General Limitations: no limitations General appearance: alert Head Head: atraumatic and normocephalic Eye Eye: Present normal appearance; Absent conjunctival injection ENT ENT: Present mucous membranes moist Chest Chest: Present symmetric chest wall rise Respiratory Respiratory: Present normal lung sounds bilaterally; Absent respiratory distress, rales/crackles, wheezes, stridor and accessory muscle use Cardiovascular Cardiovascular: Present regular rate, normal rhythm and normal heart sounds Extremities Extremities: Present normal inspection, tenderness (Positive diffuse left hip) and normal capillary refill; Absent full ROM (Limited active and passive range of motion to left hip related pain. Slight shortening or rotation.) and pedal edema Back Back: Present normal inspection; Absent tenderness Neurological Neurological: Present alert and oriented X3; Absent motor sensory deficit Psychiatric Psychiatric: Present normal affect and normal mood Skin Skin: Present warm, dry, intact and normal color Course Course Course Narrative: At 1520, we did speak to Dr. Skelton. He will be over to see the patient as soon as he can as he is currently in a surgery. He would like the hospitalist to admit. At 1530 I did speak with Dr. Caldwell, hospitalist here who agrees to accept the patient. Vital Signs Vital signs: Vital Signs Temperature 97.1 F 12/16/19 13:01 Pulse Rate 89 12/16/19 13:01 Respiratory Rate 16 12/16/19 13:01 Blood Pressure 166/98 12/16/19 13:01 Pulse Oximetry (%) 98 12/16/19 13:01 Temperature 97.1 F 12/16/19 13:01 Pulse Rate 67 12/16/19 15:27 Respiratory Rate 16 12/16/19 13:01 Blood Pressure 146/67 12/16/19 15:01 Pulse Oximetry (%) 96 12/16/19 15:27 MDM MDM Narrative Medical decision making narrative: Narrative: Lab Data Lab results reviewed: Yes I reviewed the patient's lab results. Result diagrams: 12/16/19 13:33 12/16/19 13:33 Labs: Lab Results 12/16/19 12/16/19 Range/Units 13:33 13:33 WBC 5.6 (4.50-11.00) K/mcL RBC 3.98 (3.59-5.38) M/mcL Hgb 12.0 (11.2-15.7) g/dL Hct 34.3 (34.1-44.9) % MCV 86.2 (80.0-100.0) fL MCH 30.2 (26.0-34.0) pg MCHC 35.0 (31.0-36.0) g/dL RDW 11.5 (11.5-14.5) % Plt Count 141 (140-440) K/mcL MPV 13.1 H (7.4-10.4) fL Gran % 57.0 (38.0-78.0) % Lymph % (Auto) 33.5 (15.5-49.0) % [place] % (Auto) 5.0 (1.0-12.0) % Eos % (Auto) 4.0 (0.0-7.0) % Baso % (Auto) 0.5 (0.0-2.0) % Gran # 3.16 (1.80-8.00) K/mcL Lymph # (Auto) 1.86 (1.50-4.80) K/mcL [place] # (Auto) 0.28 (0.10-0.90) K/mcL Eos # (Auto) 0.22 (0.00-0.70) K/mcL Baso # (Auto) 0.03 (0.00-0.30) K/mcL Sodium 135 (133-145) mmol/L Potassium 4.0 (3.3-5.1) mmol/L Chloride 101 (96-108) mmol/L Carbon Dioxide 25 (22-30) mmol/L Anion Gap 9.0 (8-16) BUN 25 H (8-23) mg/dl Creatinine 0.6 (0.6-1.1) mg/dl GFR Calculation 96 Glucose 173 H (70-105) mg/dL Calcium 9.2 (8.6-10.4) mg/dl Total Bilirubin 0.5 (0.0-1.0) mg/dL AST 17 (0-37) U/l ALT 19 (0-40) U/l Alkaline Phosphatase 86 (39-117) U/L Total Protein 6.3 (5.9-8.4) gm/dL Albumin 3.7 (3.2-5.2) gm/dL Globulin 2.6 (2.2-3.7) gm/dL Albumin/Globulin Ratio 1.4 (1.0-2.3) Radiology Data Radiology results reviewed: Yes I reviewed the patient's radiology results. Discharge Plan Patient/Caregiver Discharge Instructions Pt seen by COMPANY DOCTOR/PA only: Yes Clinical Impression: Fall, Closed fracture of left hip Patient Disposition: Xfer As Inpt ([facility]) Condition: Fair Follow up with: Cornell Skelton MD [Physician] - Boston Almanza DO [Primary Care Provider] - Prescriptions: No Action (DME) insulin syringe-needle U-100 [UltiCare] 0.3 mL 31 gauge x 5/16" syringe See Rx Instructions .ROUTE .MEDSUPPLY Qty: 300 RF: 4 (DME) blood-glucose meter 1 EACH misc 1 each MC QID Qty: 1 RF: 0 (DME) blood sugar diagnostic 1 EACH strip 1 each QID Qty: 120 RF: 0 Lantus U-100 Insulin 100 unit/mL solution 19 unit SUB-Q QHS RF: 0 insulin lispro [Humalog U-100 Insulin] 100 unit/mL solution 7 - 8 unit SUB-Q TID RF: 0
--- NOTE | 2019-12-16 13:45 | XRay Report ---
CLINICAL INFORMATION: Trauma - fall COMPARISON: None. TECHNIQUE: PA and Lateral views FINDINGS: The heart size, mediastinum and pulmonary vessels are unremarkable. The lungs are clear. There are no effusions. The bones and soft tissues are within normal limits. IMPRESSION: Normal chest. Interpreted and Authenticated by: Boston Vasquez 12/16/19
--- NOTE | 2019-12-16 13:45 | XRay Report ---
CLINICAL INFORMATION: left hip pain, fall. COMPARISON: None. FINDINGS: Nondisplaced transcervical fracture the left femoral neck appreciated. No other osseous abnormalities. Both SI and hip joints are normal in width and alignment without arthritic change. Soft tissue swelling over the fracture site appreciated IMPRESSION: Nondisplaced transcervical fracture - left femoral neck Interpreted and Authenticated by: Boston Vasquez 12/16/19
[2019-12-16 14:28] LABS: Basophils # (Auto) 0.03 K/mcL (0.00-0.30); Basophils % (Auto) 0.5 % (0.0-2.0); Eosinophils # (Auto) 0.22 K/mcL (0.00-0.70); Hematocrit 34.3 % (34.1-44.9); Lymphocytes # (Auto) 1.86 K/mcL (1.50-4.80); Lymphocytes % (Auto) 33.5 % (15.5-49.0); Mean Cell Volume 86.2 fL (80.0-100.0); Mean Platelet Volume 13.1 fL (7.4-10.4); Monocytes # (Auto) 0.28 K/mcL (0.10-0.90); Platelet Count 141 K/mcL (140-440); RBC 3.98 M/mcL (3.59-5.38); Red Cell Distribution Width 11.5 % (11.5-14.5); WBC 5.6 K/mcL (4.50-11.00)
[2019-12-16 14:41] LABS: ALT/SGPT 19 U/l (0-40); AST/SGOT 17 U/l (0-37); Albumin 3.7 gm/dL (3.2-5.2); Albumin/Globulin Ratio 1.4 (1.0-2.3); Alkaline Phosphatase 86 U/L (39-117); Bilirubin,Total 0.5 mg/dL (0.0-1.0); Blood Urea Nitrogen 25 mg/dl (8-23); Calcium 9.2 mg/dl (8.6-10.4); Carbon Dioxide 25 mmol/L (22-30); Chloride 101 mmol/L (96-108); Globulin 2.6 gm/dL (2.2-3.7); Glomerular Filtration Rate 96; Glucose 173 mg/dL (70-105)
--- NOTE | 2019-12-16 16:12 | Internal Med History&Physical ---
HPI History of Present Illness Patient information: Note initiated : 12/16/19 at 4:06 pm Service Date, if different from initiated Date: [] Patient: Iris Dey a 64 y/o F admitted on for hip pain/fall. Chief Complaint: History of present illness: Ms. Dey is a 64 year old F who presents to the ER after she fell this afternoon on an uneven curb on her left side. Isolated mechanical fall without any precipitating events. Initial work-up was consistent with left hip fracture. Orthopedic was consulted. Orthopedic requested hospital service for admission while patient will undergo operative intervention later in the evening. At the time of my evaluation patient is alert and oriented. She was able to answer most questions. She denies lightheadedness dizziness prior to fall. She denies loss of consciousness. Pain currently at 5 out of 10 but made worse with movement. Her blood sugars have been well controlled on basal prandial insulin. Last hospitalization was for DKA December 2018. 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), managed as type 1 (Acute) Underweight (Chronic) Glucose intolerance (Chronic) Elevated BP without diagnosis of hypertension (Chronic) Diabetes mellitus, type II (Chronic) DKA (diabetic ketoacidoses) (Acute) Prediabetes (Chronic) Medical History Diabetes mellitus, type II (Chronic) Diet treated Elevated BP without diagnosis of hypertension (Chronic) Glucose intolerance (Chronic) Stabilization by aggressive diet Prediabetes (Chronic) Onset 2015- Surgical History History of colonoscopy (Chronic ~04/2008) History of dilation and curettage (Chronic) Family History Other Melanoma Social History smoking status: Never smoker alcohol intake frequency: holiday/special occasion only substance use type: does not use MEDS/ALLERGIES Home Medications and Allergies Home Medications Medication Instructions Recorded Confirmed Type blood sugar diagnostic #120 strip 12/20/18 11/13/19 Rx blood-glucose meter #1 each 12/20/18 11/13/19 Rx insulin syringe-needle U-100 0.3 #300 each 09/09/19 11/13/19 Rx mL 31 gauge x 5/16" insulin glargine [Lantus U-100 19 unit SUB-Q 1645 12/16/19 12/17/19 History Insulin] insulin lispro [Humalog U-100 See Protocol SUB-Q ACHS 12/16/19 12/17/19 History Insulin] Allergies Allergy/AdvReac Type Severity Reaction Status Date / Time Amoxicillin [From Augmentin] AdvReac Mild Nausea Verified 12/16/19 13:00 clavulanic acid AdvReac Mild Nausea Verified 12/16/19 13:00 [From Augmentin] EXAM Constitutional Vitals: Temp Pulse Resp BP Pulse Ox 97.1 F 67 16 146/67 96 12/16/19 13:01 12/16/19 15:27 12/16/19 13:01 12/16/19 15:01 12/16/19 15:27 Head normocephalic Oral cavity moist No ear nose discharge Eye movement symmetrical Neck supple no lymphadenopathy S1-S2 occasionally irregular Nonlabored breathing Nondistended nontender abdomen Lower extremity no cyanosis clubbing or joint swelling, tenderness to passive hip movement left side. No shortening noted. Skin no suspicious lesion Psych anxious but alert cooperative Neuro normal higher function DATA Data Completed and Pending Labs: Labs from last 24 hours 12/16/19 12/16/19 13:33 13:33 WBC 5.6 RBC 3.98 Hgb 12.0 Hct 34.3 MCV 86.2 MCH 30.2 MCHC 35.0 RDW 11.5 Plt Count 141 MPV 13.1 H Gran % 57.0 Lymph % (Auto) 33.5 [place] % (Auto) 5.0 Eos % (Auto) 4.0 Baso % (Auto) 0.5 Gran # 3.16 Lymph # (Auto) 1.86 [place] # (Auto) 0.28 Eos # (Auto) 0.22 Baso # (Auto) 0.03 Sodium 135 Potassium 4.0 Chloride 101 Carbon Dioxide 25 Anion Gap 9.0 BUN 25 H Creatinine 0.6 GFR Calculation 96 Glucose 173 H Calcium 9.2 Total Bilirubin 0.5 AST 17 ALT 19 Alkaline Phosphatase 86 Total Protein 6.3 Albumin 3.7 Globulin 2.6 Albumin/Globulin Ratio 1.4 A/P Narrative A/P Narrative: * Left hip fracture-inpatient admission, orthopedic consult, keep n.p.o./pain management until operative intervention. * Preoperative risk evaluation based on RCRI [employer] to stratification patient has an excellent functional baseline however has no history of insulin dependent diabetes without history of CVA/CAD/CHF or renal failure. Patient would be an excellent postoperative rehab candidate. She would be intermediate risk patient overall. however surgery and anesthesia specific risks will be addressed by individual care providers. * DM type 2 insulin-dependent continue basal panel insulin/CC diet postoperatively * Full code * Prophylaxis will be as per orthopedics Plan * Inpatient admission * Orthopedic consult * Keep n.p.o./pain management * Review postop Time Spent With Patient Time: Total time spent is greater than 50% in coordination of care (as documented) at patient's floor/unit and/or counseling patient:
[2019-12-16] MEDS ORDERED: ACETAMINOPHEN 1,000 MG/100 ML BOTTLE IV ONE (16:34)
[2019-12-16] MEDS ORDERED: DEXAMETHASONE 10 MG/ML VIAL ONE (17:46)
[2019-12-16] MEDS ORDERED: fentaNYL 100 MCG/2 ML VIAL IV ONE (17:46)
[2019-12-16] MEDS ORDERED: LIDOCAINE HCL/PF 100 MG/5 ML SYRINGE IV ONE (17:46)
[2019-12-16] MEDS ORDERED: GLYCOPYRROLATE 0.2 MG/ML VIAL IV ONE (17:46)
[2019-12-16] MEDS ORDERED: ONDANSETRON 4 MG/2 ML VIAL ONE (17:46)
[2019-12-16] MEDS ORDERED: KETAMINE 100 MG/ML ML ONE (17:46)
[2019-12-16] MEDS ORDERED: MIDAZOLAM 2 MG/2 ML VIAL ONE (17:46)
[2019-12-16] MEDS ORDERED: PROPOFOL 200 MG/20 ML VIAL IV ONE (17:46)
[2019-12-16] MEDS ORDERED: BENZOCAINE/MENTHOL 1 LOZENGE PO PRN (18:16)
[2019-12-16] MEDS ORDERED: IPRATROPIUM/ALBUTEROL 3 ML AMPUL.NEB NEB PRN (18:16)
[2019-12-16] MEDS ORDERED: fentaNYL 100 MCG/2 ML VIAL IV PRN (18:16)
[2019-12-16] MEDS ORDERED: ONDANSETRON 4 MG/2 ML VIAL IV PRN ×3 (18:16→19:19)
[2019-12-16] MEDS ORDERED: MEPERIDINE 25 MG/ML SYRINGE IV PRN (18:16)
[2019-12-16] MEDS ORDERED: KETOROLAC 30 MG/ML VIAL IV PRN (18:16)
[2019-12-16] MEDS ORDERED: METHOCARBAMOL 1,000 MG/10 ML VIAL IV PRN (18:16)
[2019-12-16] MEDS ORDERED: LACTATED RINGERS 1,000 ML IV SCH (18:30)
[2019-12-16] MEDS ORDERED: oxyCODONE/APAP 5/325MG TABLET PO PRN (18:35)
--- NOTE | 2019-12-16 18:48 | XRay Report ---
CLINICAL INFORMATION: orif left hip COMPARISON: Preoperative films 12/16/2019 FINDINGS: Three digital images from the OR show insertion of three pins across the transcervical fracture of the left femoral neck. Alignment is anatomic. IMPRESSION: ORIF transcervical fracture left femoral neck. Alignment is anatomic Interpreted and Authenticated by: Boston Vasquez 12/16/19
[2019-12-16] MEDS ORDERED: traMADol 50 MG TABLET PO PRN (19:04)
[2019-12-16] MEDS ORDERED: ACETAMINOPHEN 325 MG TABLET PO PRN ×2 (19:05→19:19)
--- NOTE | 2019-12-16 19:14 | XRay Report ---
CLINICAL INFORMATION: Follow-up ORIF left hip fracture COMPARISON: None. FINDINGS: Transcervical fracture of the left hip has been reduced to anatomic alignment and now transfixed by three screws. No other changes or abnormalities IMPRESSION: ORIF left hip fracture in anatomic alignment Interpreted and Authenticated by: Boston Vasquez 12/16/19
[2019-12-16] MEDS ORDERED: ACETAMINOPHEN 650 MG/65 ML BOTTLE IV PRN (19:19)
[2019-12-16] MEDS ORDERED: DEXTROSE 50% 50 ML VIAL IV PRN (19:19)
[2019-12-16] MEDS ORDERED: ONDANSETRON 4 MG ODT TABLET SL PRN (19:19)
[2019-12-16] MEDS ORDERED: POLYETHYLENE GLYCOL 3350 17 GM PACKET PO PRN (19:19)
[2019-12-16] MEDS ORDERED: MELATONIN 3 MG TABLET PO PRN (19:19)
[2019-12-16] MEDS ORDERED: DEXTROSE 31 GM ORAL.SUSP PO PRN (19:19)
[2019-12-16] MEDS ORDERED: POTASSIUM CHLORIDE 20 MEQ PACKET PO PRN (19:19)
[2019-12-16] MEDS ORDERED: MAGNESIUM SULFATE 2 GM/50 ML BAG IV PRN (19:19)
[2019-12-16] MEDS ORDERED: BISACODYL 10 MG SUPP.RECT PR PRN (19:19)
[2019-12-16] MEDS: 0.9 % SODIUM CHLORIDE 1,000 ML IV SCH (19:40)
[2019-12-16] MEDS: INSULIN LISPRO 1 UNIT/0.01 ML UNIT SQ SCH ×2 (19:56→21:59)
[2019-12-16] MEDS ORDERED: INSULIN LISPRO 1 UNIT/0.01 ML UNIT SQ SCH (21:00)
[2019-12-16] MEDS: DOCUSATE SODIUM 100 MG CAPSULE PO SCH (21:52)
[2019-12-16] MEDS: SENNOSIDES/DOCUSATE SODIUM 1 TAB TABLET PO SCH (21:52)
[2019-12-16] MEDS: HEPARIN 5,000 UNIT/ML VIAL SQ SCH (22:00)
[2019-12-16] MEDS: 0.9 % SODIUM CHLORIDE 10 ML SYRINGE IV SCH (22:00)
[2019-12-17] MEDS: 0.9 % SODIUM CHLORIDE 10 ML SYRINGE IV SCH ×3 (05:35→21:17)
[2019-12-17 06:25] LABS: Hematocrit 34.4 % (34.1-44.9); Hemoglobin 11.8 g/dL (11.2-15.7); Mean Cell Volume 86.9 fL (80.0-100.0); Mean Corpuscular HGB Conc 34.3 g/dL (31.0-36.0); Mean Platelet Volume 12.9 fL (7.4-10.4); Platelet Count 145 K/mcL (140-440); RBC 3.96 M/mcL (3.59-5.38); Red Cell Distribution Width 11.4 % (11.5-14.5); WBC 7.6 K/mcL (4.50-11.00)
[2019-12-17 06:49] LABS: ALT/SGPT 15 U/l (0-40); AST/SGOT 14 U/l (0-37); Albumin 3.2 gm/dL (3.2-5.2); Albumin/Globulin Ratio 1.2 (1.0-2.3); Alkaline Phosphatase 82 U/L (39-117); Bilirubin,Direct < 0.2 mg/dL (0.0-0.3); Bilirubin,Total 0.7 mg/dL (0.0-1.0); Calcium 8.5 mg/dl (8.6-10.4); Carbon Dioxide 21 mmol/L (22-30); Chloride 104 mmol/L (96-108); Globulin 2.6 gm/dL (2.2-3.7); Glomerular Filtration Rate 96; Glucose 207 mg/dL (70-105); Lactate Dehydrogenase 216 U/L (94-250); Phosphorous 3.1 mg/dL (2.7-4.5); Triglycerides 44 mg/dl (<150); Uric Acid 4.3 mg/dL (2.5-8.0)
[2019-12-17 06:50] LABS: Blood Urea Nitrogen 17 mg/dl (8-23)
[2019-12-17] MEDS: INSULIN LISPRO 1 UNIT/0.01 ML UNIT SQ SCH ×4 (07:39→20:46)
--- NOTE | 2019-12-17 07:39 | Brief Operative Note ---
Brief Operative Note Date of procedure: 12/16/19 Pre-op diagnosis: Left nondisplaced femoral neck fracture Post-op diagnosis: same Procedure: Percutaneous screw fixation of left femoral neck fracture Grafts/Implants: Yes (3 6.5 canulated screws) Anesthesia: spinal and GLMA Findings: minimally displaced Complications: none Surgeon: Cornell Skelton Electrical Maintenance Engineer: Dario Polk Estimated blood loss (cc): 30 Specimens Removed/Pathology: none sent Condition: stable Disposition: PACU
--- NOTE | 2019-12-17 07:47 | Orthopedic Progress Note ---
SUBJECTIVE Subjective Patient information: Note initiated : 12/17/19 at 7:43 am Service Date, if different from initiated Date: [] Patient: Iris Dey 64 y/o F admitted on 12/16/19 for hip pain/fall. Chief Complaint: [] No complaints of pain Constitutional Vitals: Vital Signs Temp Pulse Resp BP Pulse Ox 97.9 F 73 12 117/61 98 12/17/19 03:43 12/17/19 03:43 12/17/19 03:43 12/17/19 03:43 12/17/19 03:43 Period Temp Pulse Resp BP Sys/[place] Pulse Ox Last 24 Hr 97.1 F-98.9 F 66-93 12- 103-166/56-98 96-100 Intake and Output 12/16/19 12/17/19 12/17/19 21:59 05:59 13:59 Intake Total 100 100 Output Total 300 Balance 100 -200 Weight 144 lb Intake & Output: Intake & Output 12/16/19 12/17/19 12/17/19 21:59 05:59 13:59 Intake Total 100 100 Output Total 300 Balance 100 -200 Weight 144 lb Intake: IV 100 Oral 100 Output: Void Amount 300 Other: Urine Appearance Clear Urine Color Bright Yellow A &O x 3, dressing clean OBJ DATA Labs CBC & Chem 7: 12/17/19 05:10 12/17/19 05:10 Labs: Abnormal Lab Results 12/17/19 12/17/19 12/16/19 05:10 05:10 13:33 RDW 11.4 L MPV 12.9 H Carbon Dioxide 21 L BUN 25 H Glucose 207 H 173 H Calcium 8.5 L Total Protein 5.8 L 12/16/19 13:33 RDW MPV 13.1 H Carbon Dioxide BUN Glucose Calcium Total Protein Meds: Medications Acetaminophen (Tylenol) 650 mg PO Q4-6HP PRN; Protocol PRN Reason: Per Pain Protocol/Fever > 101 Bisacodyl (Dulcolax) 10 mg CO Q2-3DAYS PRN PRN Reason: Constipation Dextrose (Dextrose 50%) 0 ml IV UD PRN PRN Reason: Hypoglycemia Diagnostic Test (Pha) (Accu-Chek) 1 each FS ACHS [facility] Last Admin: 12/17/19 06:51 Dose: 1 each Documented by: Docusate Sodium (Colace) 100 mg PO BID [facility] Last Admin: 12/16/19 21:52 Dose: Not Given Documented by: Glucose (Insta-Glucose) 15 gm PO PRN PRN PRN Reason: Hypoglycemia Heparin Sodium (Porcine) (Heparin) 5,000 unit SQ Q12 [facility] Last Admin: 12/16/19 22:00 Dose: 5,000 unit Documented by: Hydromorphone HCl (Dilaudid) 0.25 - 0.5 mg IV Q4HP PRN; Protocol PRN Reason: Per Pain Protocol Sodium Chloride (Sodium Chloride 0.9%) 1,000 mls @ 50 mls/hr IV .Q20H [facility] Stop: 12/19/19 07:18 Last Admin: 12/16/19 19:40 Dose: 50 mls/hr Documented by: Acetaminophen (Ofirmev) 650 mg in 65 mls @ 130 mls/hr IV Q6HP PRN; Protocol PRN Reason: Per Pain Protocol/Fever > 101 Magnesium Sulfate (Magnesium Sulfate) 2 gm in 50 mls @ 50 mls/hr IV UD PRN PRN Reason: MG = or < 1.7 Insulin Human Lispro (Humalog) 0 unit SQ ACHS [facility]; Protocol Last Admin: 12/17/19 07:39 Dose: 2 units Documented by: Iron Carb/Multivit/[place]/Folic Acid (Multivitamin W/Minerals) 1 tab PO DAILY [facility] Melatonin (Melatonin 3mg Tablet) 3 mg PO HSP PRN PRN Reason: Insomnia Ondansetron HCl (Zofran Odt) 4 mg SL Q4-6HP PRN; Protocol PRN Reason: Nausea And Vomiting Ondansetron HCl (Zofran) 4 mg IV Q4-6HP PRN; Protocol PRN Reason: Nausea And Vomiting Oxycodone/Acetaminophen (Percocet 5-325 Mg) 1 tab PO Q4-6HP PRN; Protocol PRN Reason: Per Pain Protocol Polyethylene Glycol (Miralax) 17 gm PO DAILYP PRN PRN Reason: Constipation Potassium Chloride (Klor-Con) 40 meq PO DAILYP PRN PRN Reason: K+ < 3.5 Senna/Docusate Sodium (Senna Plus Tablet) [address] [facility] Last Admin: 12/16/19 21:52 Dose: Not Given Documented by: Sodium Chloride (Saline Flush) 10 ml IV Q8 [facility] Last Admin: 12/17/19 05:35 Dose: 10 ml Documented by: Tramadol HCl (Ultram) 50 mg PO Q4-6HP PRN; Protocol PRN Reason: Pain A/P Time Spent With Patient Time: Total time spent is greater than 50% in coordination of care (as documented) at patient's floor/unit and/or counseling patient:
[2019-12-17 08:31] LABS: Lymphocytes % 13 % (15-49); Monocytes % (Manual) 3 % (1-12); Platelet Estimate NORMAL (NORMAL); RBC Morphology NORMAL (NORMAL); Segmented Neutrophils % 84 % (38-78)
[2019-12-17] MEDS: HEPARIN 5,000 UNIT/ML VIAL SQ SCH ×2 (08:44→21:17)
[2019-12-17] MEDS: MULTIVIT,THER IRON,CA,FA & MIN 1 TABLET PO SCH (08:44)
[2019-12-17] MEDS: DOCUSATE SODIUM 100 MG CAPSULE PO SCH ×3 (08:44→19:53)
--- NOTE | 2019-12-17 10:08 | Internal Med Progress Note ---
SUBJECTIVE Subjective Patient information: Note initiated : 12/17/19 at 10:06 am Service Date, if different from initiated Date: [] Patient: Iris Dey a 64 y/o F admitted on 12/16/19 for hip pain/fall. Chief Complaint: [] Ms. Dey is a 64 year old F who presents to the ER after she fell this afternoon on an uneven curb on her left side. Isolated mechanical fall without any precipitating events. Initial work-up was consistent with left hip fracture. Orthopedic was consulted. Orthopedic requested hospital service for admission while patient will undergo operative intervention later in the evening. At the time of my evaluation patient is alert and oriented. She was able to answer most questions. She denies lightheadedness dizziness prior to fall. She denies loss of consciousness. Pain currently at 5 out of 10 but made worse with movement. Her blood sugars have been well controlled on basal prandial insulin. Last hospitalization was for DKA December 2018. 12/16-postop day 1. Patient doing well. No overnight events. Ongoing physical therapy and ambulating. Pain in good control. No concerns expressed by nursing staff. Stable labs, blood sugar 207 started on basal prandial insulin. Constitutional Vitals: Vital Signs Temp Pulse Resp BP Pulse Ox 97.0 F 77 12 119/65 98 12/17/19 08:00 12/17/19 08:00 12/17/19 08:00 12/17/19 08:00 12/17/19 08:00 Period Temp Pulse Resp BP Sys/[place] Pulse Ox Last 24 Hr 97.0 F-98.9 F 66-93 12- 103-166/56-98 96-100 Intake and Output 12/16/19 12/17/19 12/17/19 21:59 05:59 13:59 Intake Total 100 100 Output Total 300 300 Balance 100 -200 -300 Weight 65.317 kg Alert oriented Ambulating Nonlabored breathing No anxiety Intake & Output: Intake & Output 12/16/19 12/17/19 12/17/19 21:59 05:59 13:59 Intake Total 100 100 Output Total 300 300 Balance 100 -200 -300 Weight 65.317 kg Intake: IV 100 Oral 100 Output: Void Amount 300 300 Other: Urine Appearance Clear Urine Color Bright Yellow Stool Size Large Stool Color Brown Stool Consistency Soft # Bowel Movements 1 OBJ DATA Labs CBC & Chem 7: 12/17/19 05:10 12/17/19 05:10 Labs: Abnormal Lab Results 12/17/19 12/17/19 12/16/19 05:10 05:10 13:33 RDW 11.4 L MPV 12.9 H Seg Neutrophils % 84 H Lymphocytes % 13 L Carbon Dioxide 21 L BUN 25 H Glucose 207 H 173 H Calcium 8.5 L Total Protein 5.8 L 12/16/19 13:33 RDW MPV 13.1 H Seg Neutrophils % Lymphocytes % Carbon Dioxide BUN Glucose Calcium Total Protein Meds: Medications Acetaminophen (Tylenol) 650 mg PO Q4-6HP PRN; Protocol PRN Reason: Per Pain Protocol/Fever > 101 Bisacodyl (Dulcolax) 10 mg [place] Q2-3DAYS PRN PRN Reason: Constipation Dextrose (Dextrose 50%) 0 ml IV UD PRN PRN Reason: Hypoglycemia Diagnostic Test (Pha) (Accu-Chek) 1 each FS ACHS [facility] Last Admin: 12/17/19 06:51 Dose: 1 each Documented by: Docusate Sodium (Colace) 100 mg PO BID [facility] Last Admin: 12/17/19 08:58 Dose: Not Given Documented by: Glucose (Insta-Glucose) 15 gm PO PRN PRN PRN Reason: Hypoglycemia Heparin Sodium (Porcine) (Heparin) 5,000 unit SQ Q12 [facility] Last Admin: 12/17/19 08:44 Dose: 5,000 unit Documented by: Hydromorphone HCl (Dilaudid) 0.25 - 0.5 mg IV Q4HP PRN; Protocol PRN Reason: Per Pain Protocol Sodium Chloride (Sodium Chloride 0.9%) 1,000 mls @ 50 mls/hr IV .Q20H [facility] Stop: 12/19/19 07:18 Last Admin: 12/16/19 19:40 Dose: 50 mls/hr Documented by: Acetaminophen (Ofirmev) 650 mg in 65 mls @ 130 mls/hr IV Q6HP PRN; Protocol PRN Reason: Per Pain Protocol/Fever > 101 Magnesium Sulfate (Magnesium Sulfate) 2 gm in 50 mls @ 50 mls/hr IV UD PRN PRN Reason: MG = or < 1.7 Insulin Glargine (Lantus) 19 unit SQ 1645 [facility] Insulin Human Lispro (Humalog) 0 unit SQ ACHS [facility]; Protocol Last Admin: 12/17/19 07:39 Dose: 2 units Documented by: Iron Carb/Multivit/[place]/Folic Acid (Multivitamin W/Minerals) 1 tab PO DAILY [facility] Last Admin: 12/17/19 08:44 Dose: 1 tab Documented by: Melatonin (Melatonin 3mg Tablet) 3 mg PO HSP PRN PRN Reason: Insomnia Ondansetron HCl (Zofran Odt) 4 mg SL Q4-6HP PRN; Protocol PRN Reason: Nausea And Vomiting Ondansetron HCl (Zofran) 4 mg IV Q4-6HP PRN; Protocol PRN Reason: Nausea And Vomiting Oxycodone/Acetaminophen (Percocet 5-325 Mg) 1 tab PO Q4-6HP PRN; Protocol PRN Reason: Per Pain Protocol Polyethylene Glycol (Miralax) 17 gm PO DAILYP PRN PRN Reason: Constipation Potassium Chloride (Klor-Con) 40 meq PO DAILYP PRN PRN Reason: K+ < 3.5 Senna/Docusate Sodium (Senna Plus Tablet) 1 tab PO HS [facility] Last Admin: 12/16/19 21:52 Dose: Not Given Documented by: Sodium Chloride (Saline Flush) 10 ml IV Q8 [facility] Last Admin: 12/17/19 05:35 Dose: 10 ml Documented by: Tramadol HCl (Ultram) 50 mg PO Q4-6HP PRN; Protocol PRN Reason: Pain A/P Narrative A/P Narrative: * Left hip fracture-postop day 1. Doing well. Pain good control. Ongoing postoperative care/therapies as per orthopedics * DM type 2 insulin-dependent, continue basal panel insulin/CC diet * Prophylaxis currently on heparin subcu Plan * Discharge planning per orthopedics * PT OT nutrition support * Pre-existing medical condition management home meds above Time Spent With Patient Time: Total time spent is greater than 50% in coordination of care (as documented) at patient's floor/unit and/or counseling patient:
[2019-12-17] MEDS ORDERED: INSULIN GLARGINE, HUMAN 1 UNIT/0.01 ML SQ SCH (16:45)
[2019-12-17] MEDS: 0.9 % SODIUM CHLORIDE 1,000 ML IV SCH (17:01)
[2019-12-17] MEDS: SENNOSIDES/DOCUSATE SODIUM 1 TAB TABLET PO SCH (19:53)
[2019-12-18] MEDS: 0.9 % SODIUM CHLORIDE 10 ML SYRINGE IV SCH (05:04)
[2019-12-18 06:42] LABS: Hematocrit 30.9 % (34.1-44.9); Hemoglobin 10.7 g/dL (11.2-15.7); Mean Cell Volume 87.5 fL (80.0-100.0); Mean Corpuscular HGB Conc 34.6 g/dL (31.0-36.0); Mean Platelet Volume 13.3 fL (7.4-10.4); Platelet Count 127 K/mcL (140-440); RBC 3.53 M/mcL (3.59-5.38); Red Cell Distribution Width 11.7 % (11.5-14.5); WBC 5.4 K/mcL (4.50-11.00)
--- NOTE | 2019-12-18 06:46 | XRay Report ---
CLINICAL INFORMATION: Cough COMPARISON: 12/16/2019 TECHNIQUE: Portable FINDINGS: The heart size, mediastinum and pulmonary vessels are unremarkable. The lungs are clear. There are no effusions. The bones and soft tissues are within normal limits. IMPRESSION: Normal chest. Interpreted and Authenticated by: Boston Vasquez 12/18/19
[2019-12-18 07:22] LABS: ALT/SGPT 12 U/l (0-40); AST/SGOT 12 U/l (0-37); Albumin 3.2 gm/dL (3.2-5.2); Albumin/Globulin Ratio 1.3 (1.0-2.3); Alkaline Phosphatase 75 U/L (39-117); Bilirubin,Direct < 0.2 mg/dL (0.0-0.3); Bilirubin,Total 0.6 mg/dL (0.0-1.0); Blood Urea Nitrogen 16 mg/dl (8-23); Calcium 8.6 mg/dl (8.6-10.4); Carbon Dioxide 24 mmol/L (22-30); Chloride 105 mmol/L (96-108); Globulin 2.5 gm/dL (2.2-3.7); Glomerular Filtration Rate 102; Glucose 227 mg/dL (70-105); Lactate Dehydrogenase 169 U/L (94-250); Triglycerides 82 mg/dl (<150); Uric Acid 4.2 mg/dL (2.5-8.0)
[2019-12-18 07:23] LABS: Phosphorous 2.3 mg/dL (2.7-4.5)
--- NOTE | 2019-12-18 07:52 | Orthopedic Progress Note ---
SUBJECTIVE Subjective Patient information: Note initiated : 12/18/19 at 7:51 am Service Date, if different from initiated Date: [] Patient: Iris Dey 64 y/o F admitted on 12/16/19 for hip pain/fall. Chief Complaint: no c/o. Pt ready to discharge to home. Constitutional Vitals: Vital Signs Temp Pulse Resp BP Pulse Ox 97.5 F 84 12 118/64 98 12/18/19 03:01 12/18/19 03:01 12/18/19 03:01 12/18/19 03:01 12/18/19 03:01 Period Temp Pulse Resp BP Sys/[place] Pulse Ox Last 24 Hr 97.0 F-98.4 F 75-92 12-12 118-139/62-75 96-100 Intake and Output 12/17/19 12/18/19 12/18/19 21:59 05:59 13:59 Intake Total 800 450 Output Total 554 400 Balance 246 50 Weight 148 lb 8 oz Intake & Output: Intake & Output 12/17/19 12/18/19 12/18/19 21:59 05:59 13:59 Intake Total 800 450 Output Total 554 400 Balance 246 50 Weight 148 lb 8 oz Intake: Oral 800 450 Output: Void Amount 254 400 # of times incontinent of urine 300 Other: Meal Dinner Percent of Meal Consumed 75% Feeding Ability Independent Urine Appearance Clear Clear Urine Color Bright Yellow Bright Yellow Stool Size Moderate Stool Color Brown Stool Consistency Formed # Voids 1 # Bowel Movements 1 OBJ DATA Labs CBC & Chem 7: 12/18/19 05:25 12/18/19 05:25 Labs: Abnormal Lab Results 12/18/19 12/18/19 12/17/19 05:25 05:25 05:10 RBC 3.53 L Hgb 10.7 L Hct 30.9 L RDW Plt Count 127 L MPV 13.3 H Seg Neutrophils % Lymphocytes % Carbon Dioxide 21 L BUN Creatinine 0.5 L Glucose 227 H 207 H Calcium 8.5 L Phosphorus 2.3 L Total Protein 5.7 L 5.8 L 12/17/19 12/16/19 12/16/19 05:10 13:33 13:33 RBC Hgb Hct RDW 11.4 L Plt Count MPV 12.9 H 13.1 H Seg Neutrophils % 84 H Lymphocytes % 13 L Carbon Dioxide BUN 25 H Creatinine Glucose 173 H Calcium Phosphorus Total Protein Meds: Medications Acetaminophen (Tylenol) 650 mg PO Q4-6HP PRN; Protocol PRN Reason: Per Pain Protocol/Fever > 101 Last Admin: 12/17/19 19:51 Dose: 650 mg Documented by: Bisacodyl (Dulcolax) 10 mg [place] Q2-3DAYS PRN PRN Reason: Constipation Dextrose (Dextrose 50%) 0 ml IV UD PRN PRN Reason: Hypoglycemia Diagnostic Test (Pha) (Accu-Chek) 1 each FS ACHS [facility] Last Admin: 12/18/19 07:10 Dose: 1 each Documented by: Docusate Sodium (Colace) 100 mg PO BID [facility] Last Admin: 12/17/19 19:53 Dose: Not Given Documented by: Glucose (Insta-Glucose) 15 gm PO PRN PRN PRN Reason: Hypoglycemia Heparin Sodium (Porcine) (Heparin) 5,000 unit SQ Q12 [facility] Last Admin: 12/17/19 21:17 Dose: 5,000 unit Documented by: Hydromorphone HCl (Dilaudid) 0.25 - 0.5 mg IV Q4HP PRN; Protocol PRN Reason: Per Pain Protocol Sodium Chloride (Sodium Chloride 0.9%) 1,000 mls @ 50 mls/hr IV .Q20H [facility] Stop: 12/19/19 07:18 Last Admin: 12/17/19 17:01 Dose: Not Given Documented by: Acetaminophen (Ofirmev) 650 mg in 65 mls @ 130 mls/hr IV Q6HP PRN; Protocol PRN Reason: Per Pain Protocol/Fever > 101 Magnesium Sulfate (Magnesium Sulfate) 2 gm in 50 mls @ 50 mls/hr IV UD PRN PRN Reason: MG = or < 1.7 Insulin Glargine (Lantus) 19 unit SQ 1645 [facility] Last Admin: 12/17/19 16:52 Dose: 19 units Documented by: Insulin Human Lispro (Humalog) 0 unit SQ ACHS [facility]; Protocol Last Admin: 12/17/19 20:46 Dose: Not Given Documented by: Iron Carb/Multivit/[employer]/Folic Acid (Multivitamin W/Minerals) 1 tab PO DAILY [facility] Last Admin: 12/17/19 08:44 Dose: 1 tab Documented by: Melatonin (Melatonin 3mg Tablet) 3 mg PO HSP PRN PRN Reason: Insomnia Ondansetron HCl (Zofran Odt) 4 mg SL Q4-6HP PRN; Protocol PRN Reason: Nausea And Vomiting Ondansetron HCl (Zofran) 4 mg IV Q4-6HP PRN; Protocol PRN Reason: Nausea And Vomiting Oxycodone/Acetaminophen (Percocet 5-325 Mg) 1 tab PO Q4-6HP PRN; Protocol PRN Reason: Per Pain Protocol Polyethylene Glycol (Miralax) 17 gm PO DAILYP PRN PRN Reason: Constipation Potassium Chloride (Klor-Con) 40 meq PO DAILYP PRN PRN Reason: K+ < 3.5 Senna/Docusate Sodium (Senna Plus Tablet) 1 tab PO HS [facility] Last Admin: 12/17/19 19:53 Dose: Not Given Documented by: Sodium Chloride (Saline Flush) 10 ml IV Q8 [facility] Last Admin: 12/18/19 05:04 Dose: 10 ml Documented by: Tramadol HCl (Ultram) 50 mg PO Q4-6HP PRN; Protocol PRN Reason: Pain A/P Assessment and plan (1) Closed fracture of left hip: Status: Acute Comment: POD#1 s/p perc pinning-stable -PT this AM -OK to d/c home, WBAT today from ortho, dry dressing change daily, OK to shower tomorrow, f/u ortho 2 weeks, DVT prophylaxis per hospitalist Qualifiers: Encounter type: initial encounter Qualified Code(s): S72.002A - Fracture of unspecified part of neck of left femur, initial encounter for closed fracture Time Spent With Patient Time: Total time spent is greater than 50% in coordination of care (as documented) at patient's floor/unit and/or counseling patient:
[2019-12-18] MEDS: INSULIN LISPRO 1 UNIT/0.01 ML UNIT SQ SCH (07:58)
[2019-12-18 08:29] LABS: Eosinophils % (Manual) 6 % (0-7); Lymphocytes % 18 % (15-49); Monocytes % (Manual) 8 % (1-12); Platelet Estimate DECREASED (NORMAL); RBC Morphology NORMAL (NORMAL); Segmented Neutrophils % 68 % (38-78)
[2019-12-18] MEDS: HEPARIN 5,000 UNIT/ML VIAL SQ SCH (08:29)
[2019-12-18] MEDS: MULTIVIT,THER IRON,CA,FA & MIN 1 TABLET PO SCH (08:29)
[2019-12-18] MEDS: DOCUSATE SODIUM 100 MG CAPSULE PO SCH (08:29)
--- NOTE | 2019-12-18 09:45 | Discharge Summary ---
Discharge Provider Provider Patient information: Note initiated : 12/18/19 at 9:42 am Service Date, if different from initiated Date: [] Patient: Iris Dey a 64 y/o F admitted on 12/16/19 for hip pain/fall. Chief Complaint: [] Discharge diagnosis * Left hip fracture-ongoing postoperative rehab. Pain well controlled. Discharging as per orthopedic commendations. * DM type II well controlled on basal prandial insulin Brief hospital course Ms. Dey is a 64 year old F who presents to the ER after she fell this afternoon on an uneven curb on her left side. Isolated mechanical fall without any precipitating events. Initial work-up was consistent with left hip fracture. Orthopedic was consulted. Orthopedic requested hospital service for admission while patient will undergo operative intervention later in the evening. At the time of my evaluation patient is alert and oriented. She was able to answer most questions. She denies lightheadedness dizziness prior to fall. She denies loss of consciousness. Pain currently at 5 out of 10 but made worse with movement. Her blood sugars have been well controlled on basal prandial insulin. Last hospitalization was for DKA December 2018. 12/16-postop day 1. Patient doing well. No overnight events. Ongoing physical therapy and ambulating. Pain in good control. No concerns expressed by nursing staff. Stable labs, blood sugar 207 started on basal prandial insulin. 12/17-patient doing well. Discharging home with advised as per orthopedics and follow-up recommendations. No overnight events. No concerns per nursing staff. Date of admission: 12/16/19 19:10 Discharge date: 12/18/19 Primary care physician: Boston Almanza DO Consults: 12/17/19 07:22 Consult to Physician [CONS] Routine Comment: Consulting Provider: Karthik Andujar Reason For Exam: Physician to Consult Discharge Meds Discharge Medications Home Medications blood sugar diagnostic #120 strip 12/20/18 [Rx Confirmed 11/13/19 Last Taken Unknown] blood-glucose meter #1 each 12/20/18 [Rx Confirmed 11/13/19 Last Taken Unknown] insulin syringe-needle U-100 0.3 mL 31 gauge x 5/16" #300 each 09/09/19 [Rx Confirmed 11/13/19 Last Taken Unknown] Lantus U-100 Insulin 19 unit SUB-Q 1645 12/16/19 [History Confirmed 12/17/19 Last Taken 12/15/19 16:45] insulin lispro [Humalog U-100 Insulin] See Protocol SUB-Q ACHS 12/16/19 [History Confirmed 12/17/19 Last Taken 12/15/19] hydrocodone-acetaminophen 1 - 2 tab PO Q4-6HP PRN #30 tab 12/18/19 [Rx Last Taken Unknown] rivaroxaban [Xarelto] 10 mg PO QDAY #10 tab 12/18/19 [Rx Last Taken Unknown] COURSE Hospital Course Hospital course: . Discharge diagnosis: . Time Spent with Patient Time attestation: Total time spent providing and/or coordinating discharge services: EXAM Constitutional Vitals: Temp Pulse Resp BP Pulse Ox 97.1 F 74 12 131/71 98 12/18/19 08:00 12/18/19 08:00 12/18/19 08:00 12/18/19 08:00 12/18/19 08:00 Discharge Data Data Completed and Pending Labs on day of discharge: Labs from last 24 hours 12/18/19 12/18/19 05:25 05:25 WBC 5.4 RBC 3.53 L Hgb 10.7 L Hct 30.9 L MCV 87.5 MCH 30.3 MCHC 34.6 RDW 11.7 Plt Count 127 L MPV 13.3 H Total Counted 100 Seg Neutrophils % 68 Band Neutrophils % Not Reportable Lymphocytes % 18 Monocytes % (Manual) 8 Eosinophils % (Manual) 6 Platelet Estimate Decreased RBC Morphology Normal Sodium 137 Potassium 4.2 Chloride 105 Carbon Dioxide 24 Anion Gap 8.0 BUN 16 Creatinine 0.5 L GFR Calculation 102 Glucose 227 H Uric Acid 4.2 Calcium 8.6 Phosphorus 2.3 L Magnesium 1.9 Total Bilirubin 0.6 Direct Bilirubin < 0.2 GGT 7 AST 12 ALT 12 Alkaline Phosphatase 75 Lactate Dehydrogenase 169 Total Protein 5.7 L Albumin 3.2 Globulin 2.5 Albumin/Globulin Ratio 1.3 Triglycerides 82 Discharge Plan Patient/Caregiver Discharge Instructions Activity: increase activity as tolerated Diet: Regular Diet Activity Restrictions/Additional Instructions: Dry dressing change: remove daily, apply 4x4 dry dressing to surgical site, secure with JOSÉ MIGUEL wrap. Follow-up PCP in 5 to 7 days Follow-up with orthopedics in 1 week Continue Xarelto 10 mg daily for DVT prophylaxis for 10 days Return to ER if worsening operative site pain, bleeding, fever chills Prescriptions: New hydrocodone-acetaminophen 7.5-325 mg tablet 1 - 2 tab PO Q4-6HP PRN (Reason: pain) Qty: 30 RF: 0 Xarelto 10 mg tablet 10 mg PO QDAY Qty: 10 RF: 0 Continued (DME) insulin syringe-needle U-100 [UltiCare] 0.3 mL 31 gauge x 5/16" syringe See Rx Instructions .ROUTE .MEDSUPPLY Qty: 300 RF: 4 (DME) blood-glucose meter 1 EACH misc 1 each MC QID Qty: 1 RF: 0 (DME) blood sugar diagnostic 1 EACH strip 1 each MC QID Qty: 120 RF: 0 Lantus U-100 Insulin 100 unit/mL solution 19 unit SUB-Q 1645 RF: 0 insulin lispro [Humalog U-100 Insulin] 100 unit/mL solution See Protocol unit SUB-Q ACHS RF: 0 Other Ambulatory Orders: Wound Care/Dressings (Daily) Location: None Selected Ordered By: Dario Polk Physical Therapy at Discharge - General (Routine) Location: None Selected Ordered By: Dario Polk Follow Up Plan Follow up with: Cornell Skelton MD [Physician] - 01/01/20 10:20 am Boston Almanza DO [Primary Care Provider] - Patient Disposition: Home, Self-Care Prognosis: Fair Rehab Potential: Fair I certify that the patient requires SNF services: No Overall status at discharge: patient is progressing back to baseline Discharge Orders: Discharge Order (Routine); Ordered 12/18/19 Ordered By: Karthik Andujar
--- NOTE | 2020-01-05 16:17 | Operative Note ---
DATE OF OPERATION: 12/16/2019 PREOPERATIVE DIAGNOSIS: Left, minimally-displaced, valgus-impacted, subcapital femoral neck fracture. POSTOPERATIVE DIAGNOSIS: Left, minimally-displaced, valgus-impacted, subcapital femoral neck fracture. PROCEDURE PERFORMED: Open treatment and internal fixation of the left subcapital femoral neck fracture with percutaneous screw fixation using 6.5 cannulated screws. SURGEON: Cornell Skelton M.D. CLOTH NAPPING SUPERVISOR: Shukri Polk PA-C. The PA's assistance was required for the safe and efficient completion of the entire case. This provider's expertise and technical skill were required throughout the case. The PA assisted with preoperative coordination, intraoperative retraction, wound closure, dressing and splint application, as well as postoperative documentation and care coordination. ANESTHESIA: General. DRAINS: None. COMPLICATIONS: None. BLOOD LOSS: 30 mL. POSTOPERATIVE CONDITION: Stable. INDICATIONS FOR SURGERY: This is a female who fell, injuring her left hip. Radiographs showed a mildly valgus-impacted femoral neck fracture. FINDINGS AT SURGERY: Post-procedure showed satisfactory fracture alignment and hardware position. PROCEDURE IN DETAIL: The patient had been seen preoperatively and informed consent had been obtained after discussion of risks and benefits of surgery. Risks including, but not limited to, bleeding; infection; injury to nerves, blood vessels, other surrounding structures; anesthetic risks; nonunion or malunion of the fracture; failure of hardware fixation; possibility of avascular necrosis requiring revision to total hip arthroplasty. She understood these risks and wished to proceed with the percutaneous screw fixation instead of a total hip arthroplasty. Correct operative site was marked in preoperative holding and patient was taken to the operating room. General anesthesia was induced. She was carefully positioned on the fracture table and the left lower extremity was then carefully positioned on the fracture table. Gentle traction and internal rotation with adduction was done to reduce the fracture. We then verified this with fluoroscopy. We then prepped and draped the left hip in normal sterile fashion. Timeout was performed verifying patient name, operative site, and plan. Fluoroscopy was used to identify our entry point and we made sure we were not below the lesser trochanter. A scalpel was used through skin and then a guide pin was started at the lower margin of the lesser trochanter and taken up along the inferior femoral neck. We placed this central in position on the lateral view. Once we liked this guide pin, we then placed one proximal and posterior and one proximal and anterior to this in an inverted triangle. Once we liked all three pin positions, we used a ruler and then reamed over the guide pin and then placed a 6.5 cannulated screw. We repeated this for the remaining two as well. Once all three screws were in good position, we backed the pins out at differing lengths and took final postop films. These were saved. We then removed the guide pins completely and then irrigated copiously with saline. Monocryl was used for subcutaneous and mike for skin. Xeroform and sterile dressing were applied and then patient was awakened, transferred to recovery in stable condition. BJB:anay Job ID: [id number] Doc ID: [id number] Cornell Skelton MD
== END 2019-12-18 12:01 | disposition home or self-care (01) | DRG 482 ==
LOC: ED 12:53 → SUR 17:25 → MEDSUR 19:10
PROVIDERS: ADMIT Internal Medicine; ATTEND Internal Medicine